=== PATIENT | female | born 1975 | race Caucasian/White ===

== ENCOUNTER 2018-07-08 17:23 | Emergency (ER) | payer SELFPAY ==
[2018-07-08 20:47] LABS: APPEARANCE,URINE CLOUDY; BILIRUBIN,URINE NEGATIVE (NEGATIVE); COLOR,URINE AMBER; GLUCOSE, URINE NEGATIVE (NEGATIVE); KETONES,URINE NEGATIVE (NEGATIVE); LEUKOCYTE ESTERASE,URINE TRACE (NEGATIVE); NITRITE,URINE NEGATIVE (NEGATIVE); PROTEIN,URINE 30 mg/dL (NEGATIVE); URINE SPECIFIC GRAVITY 1.027
[2018-07-08 21:20] LABS: ABSOLUTE EOSINOPHILS # (AUTO) 0.1 10^3/uL (0.0-0.6); ABSOLUTE LYMPHOCYTES (AUTO) 3.5 10^3/uL (0.5-4.7); ABSOLUTE MONOCYTES (AUTO) 0.5 10^3/uL (0.1-1.4); ABSOLUTE NEUT (AUTO) 4.5 10^3/uL (1.7-8.2); BASOPHILS % (AUTO) 0.4 % (0-2); EOSINOPHILS % (AUTO) 1.2 % (0-6); HEMATOCRIT 39.9 % (36.0-47.0); HEMOGLOBIN 13.5 g/dL (12.0-15.5); LYMPHOCYTES % (AUTO) 40.6 % (13-45); MEAN CORPUSCULAR HEMOGLOBIN 30.1 pg (27.0-33.4); MEAN CORPUSCULAR HGB CONC 33.9 g/dL (32.0-36.0); MEAN CORPUSCULAR VOLUME 89 fl (80-97); MONOCYTES % (AUTO) 5.8 % (3-13); PLATELET COUNT 213 10^3/uL (150-450); RED CELL DISTRIBUTION WIDTH 13.3 % (11.5-14.0); TOTAL CELLS COUNTED % (AUTO) 100 %; WHITE BLOOD COUNT 8.7 10^3/uL (4.0-10.5)
[2018-07-08 21:37] LABS: ANION GAP 10 (5-19); BLOOD UREA NITROGEN 18 mg/dL (7-20); CALCIUM 9.4 mg/dL (8.4-10.2); CARBON DIOXIDE 30 mmol/L (22-30); CHLORIDE 101 mmol/L (98-107); GLUCOSE 111 mg/dL (75-110); POTASSIUM 4.3 mmol/L (3.6-5.0); SODIUM 140.8 mmol/L (137-145)
[2018-07-08] MEDS ORDERED: CEPHALEXIN 500 MG CAPSULE PO ONE (22:21)
[2018-07-08] MEDS ORDERED: ONDANSETRON ODT 4 MG TAB (6 TAB/ER DISP) PO PRN (22:25)
--- NOTE | 2018-07-08 22:25 | ER Document Report ---
ED General - General Chief Complaint: Back Pain Stated Complaint: LOWER BACK PAIN Time Seen by Provider: 07/08/18 22:13 Notes: Patient is a pleasant 42-year-old female presents with complaint of bilateral lower back pain and also dark urine. She says she does not have any dysuria but does feel like she has some increased urinary frequency where she feels like she has to use the bathroom but only small amount of urine comes out. No fevers. No vomiting. No diarrhea. She does not member any trauma or injuries to her back. She says her pain is a bit worse when she gets up and walks around. No weakness or numbness into her legs. No loss of bowel control. No other complaints at this time. No abnormal vaginal discharge or bleeding. No pelvic pain. TRAVEL OUTSIDE OF THE [place] IN LAST 30 DAYS: No - Related Data Allergies/Adverse Reactions: morphine [Morphine] Allergy (Intermediate, Verified 03/07/13 19:33) Hives codeine [Codeine] Allergy (Mild, Verified 03/07/13 19:33) Hives Sulfa (Sulfonamide Antibiotics) Allergy (Verified 03/07/13 19:33) prednisone [Prednisone] Adverse Reaction (Intermediate, Verified 03/07/13 19:33) Past Medical History - Social History Smoking Status: Current Every Day Smoker Frequency of alcohol use: None Drug Abuse: None Family History: Reviewed & Not Pertinent Patient has suicidal ideation: No Patient has homicidal ideation: No Pulmonary Medical History: Reports: Hx Asthma, Hx Bronchitis, Hx Pneumonia Renal/ Medical History: Denies: Hx Peritoneal Dialysis Psychiatric Medical History: Reports: Hx Anxiety Past Surgical History: Reports: Hx Adenoidectomy, Hx Cholecystectomy, Hx Tonsillectomy - adenoids - Immunizations Hx Diphtheria, Pertussis, Tetanus Vaccination: Yes Review of Systems - Review of Systems Notes: My Normal Review Basic REVIEW OF SYSTEMS: CONSTITUTIONAL : Denies fever, chills, or sweats. Denies recent illness. GASTROINTESTINAL: Denies abdominal pain. Denies nausea, vomiting, or diarrhea. GENITOURINARY: urinary frequency FEMALE GENITOURINARY: Denies vaginal bleeding, abnormal or irregular periods. MUSCULOSKELETAL:Low back pain SKIN: Denies rash or skin lesions. NEUROLOGICAL: Denies altered mental status or loss of consciousness. ALL OTHER SYSTEMS REVIEWED AND NEGATIVE. Physical Exam - Vital signs Vitals: Temp Pulse Resp BP Pulse Ox 98.6 F 82 16 144/89 H 93 07/08/18 17:40 07/08/18 17:40 07/08/18 17:40 07/08/18 17:40 07/08/18 17:40 - Notes Notes: General Appearance: Well nourished, alert, cooperative, no acute distress, no obvious discomfort. Vitals: reviewed, See vital signs table. Eyes: PERRL, EOMI, Conjuctiva clear Mouth: No decreasd moisture Lungs: No wheezing, No rales, No rhonci, No accessory muscle use, good air exchange bilaterally. Heart: Normal rate, Regular rythm, No murmur, no rub Abdomen: Normal BS, soft, No rigidity, No abdominal tenderness, No guarding, no rebound, no abdominal masses, no organomegaly Back: No producible pain to palpation of the bilateral lower back paraspinal musculature. Skin: warm, dry, appropriate color, no rash Neuro: speech clear, oriented x 3, normal affect, responds appropriately to questions. Patient is able to stand and walk on her own. Distal sensation intact. Course - Re-evaluation Re-evalutation: 07/09/18 00:06 Patient's urinalysis does show some signs of infection. Her urinalysis is not overwhelmingly clear that it is infection however. She does have some symptoms such as dark urine or urinary frequency and therefore will send urine for culture and prophylactically start antibiotics. Her low back pain could be related to UTI however her back pain seems to be worse when she gets up and walks and therefore there could be a muscular skeletal component as well. I explained this to the patient length. Patient is understanding of this. We will start her on antibiotics will have her follow-up with her primary care physician. If she still having symptoms after being on antibiotic for 3-4 days and she is to follow-up with her doctor for reevaluation. I encouraged her return to ER immediately if she has worsening pain, difficulty urinating, fevers , or any weakness or numbness into her legs. Patient agrees with plan will be discharged home. Dictation of this chart was performed using voice recognition software; therefore, there may be some unintended grammatical errors. - Vital Signs Vital signs: Temp Pulse Resp BP Pulse Ox 99 F 69 16 129/83 H 97 07/08/18 23:45 07/08/18 23:45 07/08/18 23:45 07/08/18 23:45 07/08/18 23:45 - Laboratory Result Diagrams: 07/08/18 21:10 07/08/18 21:10 Laboratory results interpreted by me: 07/08/18 07/08/18 20:06 21:10 Glucose 111 H Urine Protein 30 H Urine Urobilinogen 4.0 H Ur Leukocyte Esterase TRACE H Discharge - Discharge Clinical Impression: Low back pain Qualifiers: Chronicity: acute Back pain laterality: bilateral Sciatica presence: without sciatica Qualified Code(s): M54.5 - Low back pain UTI (urinary tract infection) Qualifiers: Urinary tract infection type: site unspecified Hematuria presence: without hematuria Qualified Code(s): N39.0 - Urinary tract infection, site not specified Condition: Good Disposition: HOME, SELF-CARE Additional Instructions: I suspect you have a urinary tract infection based on your urine results and your symptoms. We will start you on an antibiotic and send your urine for culture. We will call you and change your antibiotic if your culture shows evidence of an infection resistant to the antibiotic you are on. There is always a possibility you could have a back strain or musculoskeletal etiology to your pain. We therefore want you to follow up closely with your primary care doctor n Saturday or Saturday for close reevaluation. Please return to the ER if you have worsening of your symptoms, fevers, weakness or numbness in your legs, or feel unwell. Prescriptions: Cephalexin Monohydrate [Keflex 500 mg Capsule] 500 mg PO BID #14 capsule
[2018-07-08 23:56] VITALS: BP 129/83
== END 2018-07-08 22:41 | disposition home or self-care (01) ==
LOC: ER 17:23
DX: N39.0 Urinary tract infection, site not specified (principal); M54.5 Low back pain; F17.200 Nicotine dependence, unspecified, uncomplicated; Z88.6 Allergy status to analgesic agent; Z88.2 Allergy status to sulfonamides; Z90.49 Acquired absence of other specified parts of digestive tract
CPT/HCPCS: 36415; 80048; 81001; 81025; 85025; 87086; 87088; 87186; 99283

== ENCOUNTER 2018-09-11 18:02 | Emergency (ER) | payer SELFPAY ==
[2018-09-11 18:17] VITALS: BP 153/90
--- NOTE | 2018-09-11 18:54 | ER Document Report ---
HPI - HPI Patient complains to provider of: Urinary frequency urgency pressure. Chronic back pain. Time Seen by Provider: 09/11/18 18:14 Onset: Other - Several days Onset/Duration: Intermittent Quality of pain: Pressure Severity: Moderate Pain Level: 4 Associated Symptoms: Other - Urinary frequency urgency pressure Exacerbated by: Other Relieved by: Denies - Urination Similar symptoms previously: Yes Recently seen / treated by doctor: Yes - ROS ROS below otherwise negative: Yes - CONSTITUTIONAL Constitutional: DENIES: Fever, Chills - EENT EENT: DENIES: Sore Throat, Ear Pain, Nasal Drainage-Clear, Nasal Drainage- Purulent, Congestion, Eye problems - NEURO Neurology: DENIES: Headache, Weakness, Vision blurred, Dizzinesss / Vertigo - CARDIOVASCULAR Cardiovascular: DENIES: Chest pain - RESPIRATORY Respiratory: DENIES: Trouble Breathing, Coughing - GASTROINTESTINAL Notes: Ventral hernia upper abdomen multiple old healed scars from cholecystectomy and repair of ventral hernia previously. Ventral hernia is easily reduced. - URINARY Urinary: REPORTS: Dysuria, Urgency, Frequency - REPRODUCTIVE Reproductive: DENIES: : - MUSCULOSKELETAL Musculoskeletal: REPORTS: Back Pain - Chronic back pain, chronic cystic structures or lipoma structures - DERM Skin Color: Normal Skin Problems: None Past Medical History - General Information source: Patient - Social History Smoking Status: Current Every Day Smoker Cigarette use (# per day): Yes - ppd Chew tobacco use (# tins/day): No Smoking Education Provided: Yes - 4 min Frequency of alcohol use: None Drug Abuse: None Occupation: none Lives with: Family Family History: Reviewed & Not Pertinent Patient has suicidal ideation: No Patient has homicidal ideation: No - Past Medical History Cardiac Medical History: Reports: None Pulmonary Medical History: Reports: Hx Asthma, Hx Bronchitis, Hx Pneumonia EENT Medical History: Reports: None Neurological Medical History: Reports: None Endocrine Medical History: Reports: None Renal/ Medical History: Reports: None Malignancy Medical History: Reports: None GI Medical History: Reports: Other - ventral hernia upper mid abdomen Musculoskeletal Medical History: Reports Other - 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 Other: Patient states she has been on methadone for the pain in the cystic, lipoma type knots to the upper and lower back that have been present for a number of years. She states that they stopped giving her the methadone and she got addicted to narcotics and so when she moved here they started her back on the methadone. She states she does not have insurance so she cannot go to a doctor regularly but goes to the methadone clinic where she sees a counselor and is on the methadone on a regular basis. States she was seeing a month ago for UTI but did not take the medications properly and now she has it again. Skin Medical History: Reports None Psychiatric Medical History: Reports: Hx Anxiety Traumatic Medical History: Reports: None Past Surgical History: Reports: Hx Adenoidectomy, Hx Cholecystectomy - with ventral hernia repair, Hx Tonsillectomy - adenoids - Immunizations Hx Diphtheria, Pertussis, Tetanus Vaccination: Yes Vertical Provider Document - CONSTITUTIONAL Agree With Documented VS: Yes Exam Limitations: No Limitations - INFECTION CONTROL TRAVEL OUTSIDE OF THE [place] IN LAST 30 DAYS: No - HEENT HEENT: Atraumatic, Normal ENT Exam, Normocephalic, PERRLA - NECK Neck: Normal Inspection, Supple - RESPIRATORY Respiratory: Breath Sounds Normal, No Respiratory Distress - CARDIOVASCULAR Cardiovascular: Regular Rate, Regular Rhythm - GI/ABDOMEN Notes: Ventral hernia upper mid abdomen easily reduced. Multiple scars from previous c holecystectomy obese abdomen. No tenderness to the lower abdomen or pelvic area states the ventral hernia is tender and painful when she strains to go to the bathroom. - MUSCULOSKELETAL/EXTREMETIES Musculoskeletal/Extremeties: MAEW, FROM, Tender - Multiple cystic/lipoma structures that are tender to palpation these are chronic - NEURO Level of Consciousness: Awake, Alert, Appropriate Motor/Sensory: No Motor Deficit, No Sensory Deficit Deep Tendon Reflexes: 2+ - DERM Integumentary: Warm, Dry, No Rash Course - Vital Signs Vital signs: Temp Pulse Resp BP Pulse Ox 99.0 F 74 18 153/90 H 98 09/11/18 18:16 09/11/18 18:16 09/11/18 18:16 09/11/18 18:16 09/11/18 18:16 Discharge - Discharge Clinical Impression: Dysuria Chronic pain Qualifiers: Chronic pain type: other chronic pain Qualified Code(s): G89.29 - Other chronic pain Condition: Stable Disposition: HOME, SELF-CARE Additional Instructions: Your urine was negative for any urinary tract infection at this time. I have sent the urine for culture to ensure that there is no bacterial infection. Please continue to take your current medications as prescribed. I have suggested Aspercreme lidocaine for your lumps to the back that are painful at times. I have also given you a card from the systems planner for you to call and see if there is any way you can get set up with a primary doctor since she had no insurance. Most of the primary doctor is given by the systems planner do not do chronic pain but they might help you with other concerns such as anxiety. I have suggested that you also talk with your counselor from the methadone clinic. He may be able to give me suggestions and helpful hints. FOLLOW-UP CARE: If you have been referred to a physician for follow-up care, call the physicians office for an appointment as you were instructed or within the next two days. If you experience worsening or a significant change in your symptoms, notify the physician immediately or return to the Emergency Department at any time for re-evaluation. Forms: Elevated Blood Pressure, Smoking Cessation Education Referrals: [facility] [Provider Group] - Follow up as needed [facility] [Provider Group] - Follow up as needed [facility] [Provider Group] - Follow up as needed
[2018-09-11 18:59] LABS: APPEARANCE,URINE CLEAR; BILIRUBIN,URINE NEGATIVE (NEGATIVE); COLOR,URINE YELLOW; GLUCOSE, URINE NEGATIVE (NEGATIVE); KETONES,URINE NEGATIVE (NEGATIVE); LEUKOCYTE ESTERASE,URINE TRACE (NEGATIVE); NITRITE,URINE NEGATIVE (NEGATIVE); PROTEIN,URINE NEGATIVE (NEGATIVE); URINE SPECIFIC GRAVITY 1.015
== END 2018-09-11 19:21 | disposition home or self-care (01) ==
LOC: ER 18:02
DX: R30.0 Dysuria (principal); G89.29 Other chronic pain; M54.5 Low back pain; M54.89 Other dorsalgia; Z79.891 Long term (current) use of opiate analgesic; R35.0 Frequency of micturition; R39.15 Urgency of urination; R22.2 Localized swelling, mass and lump, trunk; K43.9 Ventral hernia without obstruction or gangrene; J45.909 Unspecified asthma, uncomplicated; F17.210 Nicotine dependence, cigarettes, uncomplicated; Z71.6 Tobacco abuse counseling
CPT/HCPCS: 81001; 81025; 87086; 99283; 99406

== ENCOUNTER 2018-11-10 11:10 | Emergency (ER) | payer SELFPAY ==
--- NOTE | 2018-11-10 13:05 | ER Document Report ---
ED ENT - General Chief Complaint: Allergy Symptoms Stated Complaint: SORE THROAT,SINUS CONGESTION Time Seen by Provider: 11/10/18 12:07 Mode of Arrival: Ambulatory Information source: Patient Notes: 42-year-old female presents to ED for cough cold congestion sore throat with out any fevers for the last several days. She wanted to be checked to be sure she did not have a strep throat. She is alert oriented respirations regular and unlabored speaking in full sentences walks with a anabela gait. TRAVEL OUTSIDE OF THE [place] IN LAST 30 DAYS: No - HPI Patient complains to provider of: Nose problem, Throat problem Onset: Other - Cinthya days Onset/Duration: Persistent Quality of pain: Achy Severity: Mild Pain Level: 2 Location of pain: Nose, Sinus, Throat Associated symptoms: Congestion, Cough, Runny nose, Sinus pain, Sinus drainage, Sore throat. denies: Fever Similar symptoms previously: Yes Recently seen / treated by doctor: No - Related Data Allergies/Adverse Reactions: morphine [Morphine] Allergy (Intermediate, Verified 03/07/13 19:33) Hives codeine [Codeine] Allergy (Mild, Verified 03/07/13 19:33) Hives Sulfa (Sulfonamide Antibiotics) Allergy (Verified 03/07/13 19:33) prednisone [Prednisone] Adverse Reaction (Intermediate, Verified 03/07/13 19:33) Past Medical History - General Information source: Patient - Social History Smoking Status: Current Every Day Smoker Cigarette use (# per day): Yes - 1/3 pack/day Chew tobacco use (# tins/day): No Smoking Education Provided: Yes - 4 minutes Frequency of alcohol use: None Drug Abuse: None Lives with: Family Family History: Reviewed & Not Pertinent Patient has suicidal ideation: No Patient has homicidal ideation: No - Past Medical History Cardiac Medical History: Reports: None Pulmonary Medical History: Reports: Hx Asthma, Hx Bronchitis, Hx Pneumonia EENT Medical History: Reports: None Neurological Medical History: Reports: None Endocrine Medical History: Reports: None Renal/ Medical History: Reports: None Malignancy Medical History: Reports: None GI Medical History: Reports: None Musculoskeletal Medical History: Reports None Skin Medical History: Reports None Psychiatric Medical History: Reports: Hx Anxiety Traumatic Medical History: Reports: None Infectious Medical History: Reports: None Past Surgical History: Reports: Hx Adenoidectomy, Hx Cholecystectomy - with ventral hernia repair, Hx Tonsillectomy - adenoids - Immunizations Immunizations up to date: Yes Hx Diphtheria, Pertussis, Tetanus Vaccination: Yes Review of Systems - Review of Systems Constitutional: No symptoms reported EENT: No symptoms reported Cardiovascular: No symptoms reported Respiratory: No symptoms reported Gastrointestinal: No symptoms reported Genitourinary: No symptoms reported Female Genitourinary: No symptoms reported Musculoskeletal: No symptoms reported Skin: No symptoms reported Hematologic/Lymphatic: No symptoms reported Neurological/Psychological: No symptoms reported -: Yes All other systems reviewed and negative Physical Exam - Vital signs Vitals: Temp Pulse Resp BP Pulse Ox 98.0 F 75 16 135/79 H 94 11/10/18 11:38 11/10/18 11:38 11/10/18 11:38 11/10/18 11:38 11/10/18 11:38 Interpretation: Normal - General General appearance: Appears well, Alert - HEENT Head: Normocephalic, Atraumatic Eyes: Normal Pupils: PERRL Ears: Normal External canal: Normal Tympanic membrane: Normal Sinus: Normal Nasal: Purulent discharge, Swelling Mouth/Lips: Normal Mucous membranes: Normal Pharynx: Erythema, Post nasal drainage. No: Exudate, Tonsillar hypertrophy Neck: Normal - Respiratory Respiratory status: No respiratory distress Chest status: Nontender Breath sounds: Nonproductive cough. No: Productive cough, Rales, Rhonchi, Stridor, Wheezing Chest palpation: Normal - Cardiovascular Rhythm: Regular Heart sounds: Normal auscultation Murmur: No - Abdominal Inspection: Normal Distension: No distension Bowel sounds: Normal Tenderness: Nontender Organomegaly: No organomegaly - Back Back: Normal, Nontender - Extremities General upper extremity: Normal inspection, Nontender, Normal color, Normal ROM, Normal temperature General lower extremity: Normal inspection, Nontender, Normal color, Normal ROM, Normal temperature, Normal weight bearing. No: Alethea's sign - Neurological Neuro grossly intact: Yes Cognition: Normal Orientation: AAOx4 [place] Coma Scale Eye Opening: Spontaneous [place] Coma Scale Verbal: Oriented [place] Coma Scale Motor: Obeys Commands [place] Coma Scale Total: 15 Speech: Normal Motor strength normal: LUE, RUE, LLE, RLE Sensory: Normal - Psychological Associated symptoms: Normal affect, Normal mood - Skin Skin Temperature: Warm Skin Moisture: Dry Skin Color: Normal Course - Re-evaluation Re-evalutation: 11/10/18 16:58 After performing a Medical Screening Examination, I estimate there is LOW risk for ACUTE CORONARY SYNDROME, RESPIRATORY FAILURE, SEPSIS OR MENINGITIS, thus I consider the discharge disposition reasonable. I have reevaluated this patient multiple times and no significant life threatening changes are noted. The patient and I have discussed the diagnosis and risks, and we agree with discharging home with close follow-up. We also discussed returning to the Em ergency Department immediately if new or worsening symptoms occur. We have discussed the symptoms which are most concerning (e.g., changing or worsening pain, trouble swallowing or breathing, neck stiffness, fever) that necessitate immediate return. - Vital Signs Vital signs: Temp Pulse Resp BP Pulse Ox 98.6 F 71 16 126/71 H 94 11/10/18 13:37 11/10/18 13:37 11/10/18 13:37 11/10/18 13:37 11/10/18 13:37 Discharge - Discharge Clinical Impression: Viral sore throat URI (upper respiratory infection) Qualifiers: URI type: unspecified viral URI Qualified Code(s): J06.9 - Acute upper respir atory infection, unspecified Condition: Stable Disposition: HOME, SELF-CARE Instructions: Family Physicians / Practices Additional Instructions: SORE THROAT: Sore throats may be caused by viruses, bacteria, or fungi. Most are due to a virus, and must get better on their own. Bacterial sore throats, particularly those due to "strep," need treatment with antibiotics. If an antibiotic is prescribed, be sure to take the medication for a full 10 days. Failure to take the antibiotic can result in complications such as rheumatic fever. Sometimes, an injection of antibiotics is given instead of pills or liquid. This single "shot" is equal in effectiveness to the oral medication. To relieve symptoms, take acetaminophen for pain. Sip clear liquids frequently, or eat popsicles or ice chips. Anesthetic sprays or lozenges may help. Make sure the air in the room is not too dry. Avoid using decongestants or antihistamines. Call the doctor if there is no improvement in two days, or if you have difficulty breathing, increasing throat pain, high fever, rash, or frequent vomiting. UPPER RESPIRATORY ILLNESS: You have a viral infection of the respiratory passages -- a "cold." This common infection causes nasal congestion, drainage, and often sore throat and cough. It is highly contagious. The disease usually lasts about 10 to 14 days. There is no "cure" for the viral infection -- it must run its course. If there is a complication, such as bacterial infection in the nose, sinuses, middle ear, or bronchial tubes, antibiotics may be required. The antibiotics won't affect the virus. Drink plenty of fluids. A humidifier may help. An expectorant medication or decongestant may make you more comfortable. Use acetaminophen or ibuprofen for fever or aches. See the doctor if fever persists over two days, if there is any significant worsening of your symptoms, or if you simply fail to improve as expected. Try Claritin 10 mg, Sudafed 30 mg, Mucinex 600 mg, Flonase 2 sprays each nostril, and Chloraseptic spray for your cough cold congestion and sore throat. There is no strep throat and you do not need antibiotics at this time. Please follow-up with your primary doctor. USE OF ACETAMINOPHEN (Tylenol): Acetaminophen may be taken for pain relief or fever control. It's much safer than aspirin, offering a wider range of "safe" dosages. It is safe during . Some brand names are Tylenol, Panadol, Datril, Anacin 3, Tempra, and Liquiprin. Acetaminophen can be repeated every four hours. The following are maximum recommended dosages: >89 pounds or adults 650 mg to 900 mg Acetaminophen can be repeated every four hours. Maximum dose not to exceed 4000 mg a day. SMOKING: If you smoke, you should stop smoking. The tar and chemicals in cigarette smoke are harmful. Smoking has been shown to cause: emphysema chronic bronchitis lung cancer mouth and throat cancer stomach and pancreas cancer premature aging defects In addition, smoking increases ear and lung infections in children of smokers. FOLLOW-UP CARE: If you have been referred to a physician for follow-up care, call the physicians office for an appointment as you were instructed or within the next two days. If you experience worsening or a significant change in your symptoms, notify the physician immediately or return to the Emergency Department at any time for re-evaluation. Forms: Elevated Blood Pressure, Smoking Cessation Education, Return to Work
[2018-11-10 13:39] VITALS: BP 126/71
== END 2018-11-10 13:50 | disposition home or self-care (01) ==
LOC: ER 11:10
DX: J06.9 Acute upper respiratory infection, unspecified (principal); J02.9 Acute pharyngitis, unspecified; B34.9 Viral infection, unspecified; F17.210 Nicotine dependence, cigarettes, uncomplicated; Z88.6 Allergy status to analgesic agent; Z88.2 Allergy status to sulfonamides; Z90.49 Acquired absence of other specified parts of digestive tract
CPT/HCPCS: 87070; 87880; 99283; 99406

== ENCOUNTER 2019-01-13 20:19 | Emergency (ER) | payer SELFPAY ==
[2019-01-13] MEDS ORDERED: ONDANSETRON 4 MG TAB.RAPDIS PO ONE (21:42)
[2019-01-13] MEDS ORDERED: IBUPROFEN 600 MG TABLET PO ONE (21:42)
--- NOTE | 2019-01-13 21:43 | ER Document Report ---
ED Medical Screen (RME) - General Chief Complaint: Abdominal Pain Stated Complaint: ABDOMINAL PAIN Time Seen by Provider: 01/13/19 21:42 Notes: 43-year-old female, chief complaint of mid abdominal pain sharp, pain started today. Denies vomiting, has not had a bowel movement today, denies fever/chills. Denies vaginal bleeding or discharge, flank pain, dysuria. Past medical history of ventral hernia repair and takes methadone. TRAVEL OUTSIDE OF THE [place] IN LAST 30 DAYS: No - Related Data Allergies/Adverse Reactions: morphine [Morphine] Allergy (Intermediate, Verified 03/07/13 19:33) Hives codeine [Codeine] Allergy (Mild, Verified 03/07/13 19:33) Hives Sulfa (Sulfonamide Antibiotics) Allergy (Verified 03/07/13 19:33) prednisone [Prednisone] Adverse Reaction (Intermediate, Verified 03/07/13 19:33) Past Medical History Pulmonary Medical History: Reports: Hx Asthma, Hx Bronchitis, Hx Pneumonia Renal/ Medical History: Denies: Hx Peritoneal Dialysis Psychiatric Medical History: Reports: Hx Anxiety Past Surgical History: Reports: Hx Adenoidectomy, Hx Cholecystectomy - with ventral hernia repair, Hx Tonsillectomy - adenoids - Immunizations Immunizations up to date: Yes Hx Diphtheria, Pertussis, Tetanus Vaccination: Yes Physical Exam - Vital signs Vitals: Temp Pulse Resp BP Pulse Ox 98.3 F 75 16 125/83 94 01/13/19 21:07 01/13/19 21:07 01/13/19 21:07 01/13/19 21:07 01/13/19 21:07 - Abdominal Tenderness: Tender - Ventral hernia appears to have returned but is not incarcerated on my evaluation. Pain appears to be below this in the mid abdomen. No severe guarding or distention, no rigidity. Course - Re-evaluation Re-evalutation: I have greeted and performed a rapid initial assessment of this patient. A comprehensive ED assessment and evaluation of the patient, analysis of test results and completion of the medical decision making process will be conducted by additional ED providers. - Vital Signs Vital signs: Temp Pulse Resp BP Pulse Ox 98.3 F 75 16 125/83 94 01/13/19 21:07 01/13/19 21:07 01/13/19 21:07 01/13/19 21:07 01/13/19 21:07
[2019-01-13 23:07] LABS: ABSOLUTE BASOPHILS # (AUTO) 0.2 10^3/uL (0.0-0.2); ABSOLUTE EOSINOPHILS # (AUTO) 0.1 10^3/uL (0.0-0.6); ABSOLUTE LYMPHOCYTES (AUTO) 3.8 10^3/uL (0.5-4.7); ABSOLUTE MONOCYTES (AUTO) 0.4 10^3/uL (0.1-1.4); ABSOLUTE NEUT (AUTO) 5.6 10^3/uL (1.7-8.2); BASOPHILS % (AUTO) 2.1 % (0-2); EOSINOPHILS % (AUTO) 1.2 % (0-6); HEMOGLOBIN 13.9 g/dL (12.0-15.5); LYMPHOCYTES % (AUTO) 37.8 % (13-45); MEAN CORPUSCULAR HEMOGLOBIN 30.3 pg (27.0-33.4); MEAN CORPUSCULAR HGB CONC 33.9 g/dL (32.0-36.0); MEAN CORPUSCULAR VOLUME 89 fl (80-97); MONOCYTES % (AUTO) 3.8 % (3-13); PLATELET COUNT 218 10^3/uL (150-450); RED BLOOD COUNT 4.59 10^6/uL (3.72-5.28); RED CELL DISTRIBUTION WIDTH 13.6 % (11.5-14.0); SEGMENTED NEUTROPHILS % (AUTO) 55.1 % (42-78); TOTAL CELLS COUNTED % (AUTO) 100 %; WHITE BLOOD COUNT 10.1 10^3/uL (4.0-10.5)
[2019-01-13 23:19] LABS: AMORPHOUS SEDIMENT,URINE TRACE /HPF; APPEARANCE,URINE SLIGHTLY-CLOUDY; BILIRUBIN,URINE NEGATIVE (NEGATIVE); COLOR,URINE YELLOW; GLUCOSE, URINE NEGATIVE (NEGATIVE); KETONES,URINE NEGATIVE (NEGATIVE); LEUKOCYTE ESTERASE,URINE TRACE (NEGATIVE); NITRITE,URINE NEGATIVE (NEGATIVE); PROTEIN,URINE NEGATIVE (NEGATIVE); URINE SPECIFIC GRAVITY 1.017
[2019-01-13 23:22] LABS: ALANINE AMINOTRANSFERASE 32 U/L (9-52); ALBUMIN 4.4 g/dL (3.5-5.0); ALKALINE PHOSPHATASE 94 U/L (38-126); ANION GAP 11 (5-19); ASPARTATE AMINO TRANSFERASE 25 U/L (14-36); BILIRUBIN,DIRECT 0.3 mg/dL (0.0-0.4); BILIRUBIN,TOTAL 0.4 mg/dL (0.2-1.3); BLOOD UREA NITROGEN 14 mg/dL (7-20); CALCIUM 9.8 mg/dL (8.4-10.2); CARBON DIOXIDE 29 mmol/L (22-30); CHLORIDE 101 mmol/L (98-107); GLUCOSE 143 mg/dL (75-110); LIPASE 80.3 U/L (23-300); POTASSIUM 4.3 mmol/L (3.6-5.0); SODIUM 140.9 mmol/L (137-145); TOTAL PROTEIN 7.7 g/dL (6.3-8.2)
--- NOTE | 2019-01-13 23:34 | RADIOLOGY REPORT (SQ) ---
EXAM DESCRIPTION: XR ABDOMEN SUPINE AND ERECT WITH CHEST (ABD ACUTE SERIES) COMPLETED DATE/TME: 01/13/2019 21:42 CLINICAL HISTORY: 43 years, Female, mid abd pain, hx abd surgery COMPARISON: None. NUMBER OF VIEWS: Three TECHNIQUE: Three frontal radiographs of the chest and abdomen were obtained LIMITATIONS: None. FINDINGS: Cardiac and mediastinal contours are normal. Blunting of the right costophrenic sulcus is evident. Lungs are otherwise clear. No pneumothorax. No subdiaphragmatic free air is appreciated. Gas and a moderate amount of stool are noted throughout the large bowel. Scattered nondilated loops of small bowel are also visible throughout the abdomen. Surgical clips project over the right upper quadrant. There is mild rightward curvature of the thoracolumbar spine. IMPRESSION: Blunting of the right costophrenic sulcus which could indicate pleural thickening or a small right pleural effusion. Otherwise, no other acute findings within the chest. Nonobstructive bowel gas pattern. Moderate colonic stool load. copyright 2010 [employer]- All Rights Reserved
[2019-01-14] MEDS ORDERED: MAGNESIUM CITRATE 296 ML BOTTLE PO ONE (00:50)
--- NOTE | 2019-01-14 00:52 | ER Document Report ---
ED GI/ - General Chief Complaint: Abdominal Pain Stated Complaint: ABDOMINAL PAIN Time Seen by Provider: 01/13/19 21:42 Primary Care Provider: [facility] [Provider Group] - Follow up as needed Notes: Patient is a 43-year-old female, chief complaint of mid abdominal pain sharp, pain started today. Denies vomiting, has not had a bowel movement today, denies fever/chills. Denies vaginal bleeding or discharge, flank pain, dysuria. Past medical history of ventral hernia repair, cholecystectomy, and takes methadone. She smokes. TRAVEL OUTSIDE OF THE [place] IN LAST 30 DAYS: No - Related Data Allergies/Adverse Reactions: morphine [Morphine] Allergy (Intermediate, Verified 03/07/13 19:33) Hives codeine [Codeine] Allergy (Mild, Verified 03/07/13 19:33) Hives Sulfa (Sulfonamide Antibiotics) Allergy (Verified 03/07/13 19:33) prednisone [Prednisone] Adverse Reaction (Intermediate, Verified 03/07/13 19:33) Past Medical History - General Information source: Patient - Social History Smoking Status: Current Every Day Smoker Smoking Education Provided: Yes - <3 min Frequency of alcohol use: None Drug Abuse: None Lives with: Family Family History: Reviewed & Not Pertinent Pulmonary Medical History: Reports: Hx Asthma, Hx Bronchitis, Hx Pneumonia Renal/ Medical History: Denies: Hx Peritoneal Dialysis Psychiatric Medical History: Reports: Hx Anxiety Past Surgical History: Reports: Hx Adenoidectomy, Hx Cholecystectomy - with ventral hernia repair, Hx Tonsillectomy - adenoids - Immunizations Immunizations up to date: Yes Hx Diphtheria, Pertussis, Tetanus Vaccination: Yes Review of Systems - Review of Systems Constitutional: No symptoms reported EENT: No symptoms reported Cardiovascular: No symptoms reported Respiratory: No symptoms reported Gastrointestinal: See HPI Genitourinary: No symptoms reported Female Genitourinary: No symptoms reported Musculoskeletal: No symptoms reported Skin: No symptoms reported Hematologic/Lymphatic: No symptoms reported Neurological/Psychological: No symptoms reported Physical Exam - Vital signs Vitals: Temp Pulse Resp BP Pulse Ox 98.3 F 75 16 125/83 94 01/13/19 21:07 01/13/19 21:07 01/13/19 21:07 01/13/19 21:07 01/13/19 21:07 - Notes Notes: GENERAL: Alert, interacts well. No acute distress. HEAD: Normocephalic, atraumatic. EYES: Pupils equal, round, and reactive to light. Extraocular movements intact. ENT: Oral mucosa moist, tongue midline. Oropharynx unremarkable. Airway patent. NECK: Full range of motion. Supple. Trachea midline. LUNGS: Clear to auscultation bilaterally, no wheezes, rales, or rhonchi. No respiratory distress. HEART: Regular rate and rhythm. No murmur ABDOMEN: Questionable minimal distention. No rigidity. There is a small ventral hernia which is reduced easily, there is no erythema or hardness, the re maining abdomen is benign without noted tenderness. No guarding. GENITOURINARY: Deferred EXTREMITIES: Moves all 4 extremities spontaneously. No edema, normal radial and dorsalis pedis pulses bilaterally. No cyanosis. BACK: no cervical, thoracic, lumbar midline tenderness. No saddle anesthesia, normal distal neurovascular exam. Moves all extremities in full range of motion. NEUROLOGICAL: Alert and oriented x3. Normal speech. Cranial nerves II through XII grossly intact. PSYCH: Normal affect, normal mood. SKIN: Warm, dry, normal turgor. No rashes or lesions noted. Course - Re-evaluation Re-evalutation: Patient is quite well-appearing. In triage she asked for Zofran and ibuprofen, she did look mildly uncomfortable initially but on re-evaluation she is very well-appearing. She does have a palpable ventral hernia but this is not incarcerated, reduces easily, is not noted to be tender, and her remaining abdomen is very benign. She reports she feels distended, she does seem slightly distended but not rigid. CBC, chemistry, urinalysis unremarkable. test is negative. Acute abdominal series showing possible pleural thickening versus tiny pleural effusion, however patient has no respiratory complaints, no chest pain, no hypoxia, no shortness of breath. No bowel obstruction or free air is noted but there is a moderate amount of stool. Patient does not take a stool softener, is on methadone, reports poor bowel movements recently. There appears to be a constipation component. I discussed with patient her hernia, need for follow-up and repair, smoking cessation, and her work-up. I do not suspect an acute abdomen based on her benign abdominal evaluation. Patient will be treated for retained stool, follow-up with surgery, return if she worsens. Patient states satisfaction agreement. Stable at time of discharge. - Vital Signs Vital signs: Temp Pulse Resp BP Pulse Ox 98.4 F 78 20 133/79 H 98 01/14/19 01:20 01/14/19 01:20 01/14/19 01:20 01/14/19 01:20 01/14/19 01:20 - Laboratory Result Diagrams: 01/13/19 22:44 01/13/19 22:44 Laboratory results interpreted by me: 01/13/19 01/13/19 01/13/19 22:44 22:44 22:44 Basophils % 2.1 H Glucose 143 H Urine Urobilinogen 4.0 H Ur Leukocyte Esterase TRACE H Discharge - Discharge Clinical Impression: Abdominal pain Qualifiers: Abdominal location: generalized Qualified Code(s): R10.84 - Generalized abdominal pain Condition: Stable Disposition: HOME, SELF-CARE Additional Instructions: Your laboratory work-up does not show any concerning a normality, your x-ray does not show bowel obstruction or concerning finding at this time. You do have a large amount of stool in the colon that we will try to clear, he will also have a ventral hernia which likely needs repair, please follow-up with the surgical clinic referral. I recommend that you drink 1/4 to 1/2 of the magnesium citrate, then if after several hours you do not have bowel movement results drink another 1/4 to half. You may need to take the colace stool softener for the next several days as well as prescribed. Take bentyl for cramping, zofran for nausea. Improve your diet - increased vegetables, fruits, fiber, and fluids are very helpful to clear your bowels. Return if you worsen including vomiting, severe worsening abdominal pain, fever/chills, or any other concerning symptoms. Prescriptions: Dicyclomine HCl [Bentyl 20 mg Tablet] 20 mg PO QID PRN #20 tablet PRN Reason: Docusate Sodium [Colace 100 mg Capsule] 100 mg PO ASDIR PRN #30 capsule PRN Reason: Forms: Smoking Cessation Education Referrals: [facility] [Provider Group] - Follow up as needed
[2019-01-14] MEDS ORDERED: KETOROLAC TROMETHAMINE 60 MG/2 ML SDV IM ONE (01:16)
[2019-01-14 01:54] VITALS: BP 133/79
== END 2019-01-14 01:13 | disposition home or self-care (01) ==
LOC: ER 20:19
DX: R10.84 Generalized abdominal pain (principal); K43.9 Ventral hernia without obstruction or gangrene; F17.200 Nicotine dependence, unspecified, uncomplicated; Z90.49 Acquired absence of other specified parts of digestive tract; Z88.6 Allergy status to analgesic agent; Z88.2 Allergy status to sulfonamides
CPT/HCPCS: 99284; 96372; 36415; 83690; 85025; 81025; 80053; 81001; 74022; J3490; J1885; S0119

== ENCOUNTER 2019-03-20 19:20 | Emergency (ER) | payer SELFPAY ==
--- NOTE | 2019-03-20 20:45 | ER Document Report ---
ED Medical Screen (RME) - General Chief Complaint: High Blood Pressure Stated Complaint: HEADACHE,HIGH BLOOD PRESSURE Time Seen by Provider: 03/20/19 20:39 Mode of Arrival: Ambulatory Information source: Patient Notes: 43-year-old female presented to ED for complaint of headache earlier today. She states she had not eaten at the time and she checked her blood pressure was 150/101. She was extremely anxious. She did eat a banana and some crackers and her headache got better and her blood pressure came down. She states she is been having hot flashes on and off. She states she has not had a menstrual cycle in almost a year. Her mother states she was probably going through menopause and she said she felt this might be why she was having a headache and hot flashes. She has had a history of high blood pressure and anxiety. She has had her gallbladder removed and a ventral hernia repair tonsils and adenoids removed. She is also says she smokes a pack a day does not drink or do any drugs. She is alert oriented respirations regular and unlabored speaking in full sentences. She states her headache is much better now. She states the reason she came to the emergency room is her friend is scaring her to so she came to get checked out. I have greeted and performed a rapid initial assessment of this patient. A comprehensive ED assessment and evaluation of the patient, analysis of test results and completion of medical decision making process will be conducted by an additional ED providers. Dictation of this chart was performed using voice recognition software; therefore, there may be some unintended grammatical errors. TRAVEL OUTSIDE OF THE [place] IN LAST 30 DAYS: No - Related Data Allergies/Adverse Reactions: morphine [Morphine] Allergy (Intermediate, Verified 03/20/19 20:31) Hives codeine [Codeine] Allergy (Mild, Verified 03/20/19 20:31) Hives Sulfa (Sulfonamide Antibiotics) Allergy (Verified 03/20/19 20:31) prednisone [Prednisone] Adverse Reaction (Intermediate, Verified 03/20/19 20:31) Past Medical History - Social History Frequency of alcohol use: None Drug Abuse: None Pulmonary Medical History: Reports: Hx Asthma, Hx Bronchitis, Hx Pneumonia Renal/ Medical History: Denies: Hx Peritoneal Dialysis Psychiatric Medical History: Reports: Hx Anxiety Past Surgical History: Reports: Hx Adenoidectomy, Hx Cholecystectomy - with ventral hernia repair, Hx Tonsillectomy - adenoids - Immunizations Immunizations up to date: Yes Hx Diphtheria, Pertussis, Tetanus Vaccination: Yes Physical Exam - Vital signs Vitals: Temp Pulse Resp BP Pulse Ox 98.1 F 70 18 144/91 H 96 03/20/19 19:27 03/20/19 19:27 03/20/19 19:27 03/20/19 19:27 03/20/19 19:27 Course - Vital Signs Vital signs: Temp Pulse Resp BP Pulse Ox 98.1 F 70 18 144/91 H 96 03/20/19 19:27 03/20/19 19:27 03/20/19 19:27 03/20/19 19:27 03/20/19 19:27
[2019-03-20 21:36] LABS: ABSOLUTE EOSINOPHILS # (AUTO) 0.2 10^3/uL (0.0-0.6); ABSOLUTE LYMPHOCYTES (AUTO) 4.6 10^3/uL (0.5-4.7); ABSOLUTE MONOCYTES (AUTO) 0.6 10^3/uL (0.1-1.4); ABSOLUTE NEUT (AUTO) 4.8 10^3/uL (1.7-8.2); BASOPHILS % (AUTO) 0.4 % (0-2); EOSINOPHILS % (AUTO) 1.5 % (0-6); HEMATOCRIT 41.4 % (36.0-47.0); HEMOGLOBIN 14.1 g/dL (12.0-15.5); LYMPHOCYTES % (AUTO) 45.2 % (13-45); MEAN CORPUSCULAR HEMOGLOBIN 30.4 pg (27.0-33.4); MEAN CORPUSCULAR VOLUME 90 fl (80-97); MONOCYTES % (AUTO) 5.8 % (3-13); PLATELET COUNT 221 10^3/uL (150-450); RED BLOOD COUNT 4.62 10^6/uL (3.72-5.28); RED CELL DISTRIBUTION WIDTH 13.2 % (11.5-14.0); SEGMENTED NEUTROPHILS % (AUTO) 47.1 % (42-78); TOTAL CELLS COUNTED % (AUTO) 100 %; WHITE BLOOD COUNT 10.2 10^3/uL (4.0-10.5)
[2019-03-20 21:48] LABS: APPEARANCE,URINE CLEAR; BILIRUBIN,URINE NEGATIVE (NEGATIVE); COLOR,URINE YELLOW; GLUCOSE, URINE NEGATIVE (NEGATIVE); KETONES,URINE NEGATIVE (NEGATIVE); LEUKOCYTE ESTERASE,URINE TRACE (NEGATIVE); NITRITE,URINE NEGATIVE (NEGATIVE); PROTEIN,URINE NEGATIVE (NEGATIVE); URINE SPECIFIC GRAVITY 1.024
[2019-03-20 21:58] LABS: ALBUMIN 4.3 g/dL (3.5-5.0); ALKALINE PHOSPHATASE 95 U/L (38-126); ANION GAP 12 (5-19); ASPARTATE AMINO TRANSFERASE 29 U/L (14-36); BILIRUBIN,DIRECT 0.4 mg/dL (0.0-0.4); BILIRUBIN,TOTAL 0.5 mg/dL (0.2-1.3); BLOOD UREA NITROGEN 12 mg/dL (7-20); CALCIUM 9.6 mg/dL (8.4-10.2); CARBON DIOXIDE 27 mmol/L (22-30); CHLORIDE 100 mmol/L (98-107); GLUCOSE 107 mg/dL (75-110); POTASSIUM 4.3 mmol/L (3.6-5.0); TOTAL PROTEIN 7.3 g/dL (6.3-8.2)
--- NOTE | 2019-03-21 00:25 | ER Document Report ---
ED General - General Chief Complaint: High Blood Pressure Stated Complaint: HEADACHE,HIGH BLOOD PRESSURE Time Seen by Provider: 03/20/19 20:39 Primary Care Provider: [facility] [Provider Group] - Follow up in 3-5 days Mode of Arrival: Ambulatory Notes: 43-year-old female to the emergency department chief complaint of headache and high blood pressure. Patient states that she took her blood pressure with a automated wrist blood pressure that her friend gave her because she was feeling a little dizzy. Her blood pressure was reportedly 170/100. Her friend convinced her to come to the ER. She states that her friend makes her anxious and nervous because she is always telling her there is something wrong. States that her friend has some sort of medical training. States that she may be going through menopause. Has not had a menstrual cycle in over a year. Smoke. Does have extra weight that she needs to lose. TRAVEL OUTSIDE OF THE [place] IN LAST 30 DAYS: No - HPI Onset/Duration: Gradual Quality of pain: No pain - Related Data Allergies/Adverse Reactions: morphine [Morphine] Allergy (Intermediate, Verified 03/20/19 20:31) Hives codeine [Codeine] Allergy (Mild, Verified 03/20/19 20:31) Hives Sulfa (Sulfonamide Antibiotics) Allergy (Verified 03/20/19 20:31) prednisone [Prednisone] Adverse Reaction (Intermediate, Verified 03/20/19 20:31) Past Medical History - General Information source: Patient - Social History Smoking Status: Current Every Day Smoker Cigarette use (# per day): Yes Frequency of alcohol use: None Drug Abuse: None Lives with: Family Family History: Reviewed & Not Pertinent Patient has suicidal ideation: No Patient has homicidal ideation: No - Past Medical History Cardiac Medical History: Reports: None Pulmonary Medical History: Reports: Hx Asthma, Hx Bronchitis, Hx Pneumonia Renal/ Medical History: Denies: Hx Peritoneal Dialysis Psychiatric Medical History: Reports: Hx Anxiety Past Surgical History: Reports: Hx Adenoidectomy, Hx Cholecystectomy - with ventral hernia repair, Hx Tonsillectomy - adenoids - Immunizations Immunizations up to date: Yes Hx Diphtheria, Pertussis, Tetanus Vaccination: Yes Review of Systems - Review of Systems Notes: Constitutional: denies: Chills, Diaphoresis, Fever, Malaise, Weakness EENT: denies: Eye discharge, Blurred vision, Tearing, Double vision, Nose congestion, Nose discharge, Throat swelling, Mouth pain Cardiovascular: denies: Palpitations, Heart racing, Orthopnea, Dyspnea, Chest pain Respiratory: denies: Cough, Hurts to breathe, Wheezing, Shortness of breath Gastrointestinal: denies: Abdominal pain, Diarrhea, Nausea, Vomiting, Black stools, bright red blood in stool Genitourinary: denies: Burning, Dysuria, Discharge, Frequency, Flank pain, Hematuria Musculoskeletal: denies: Joint pain, Joint swelling, Muscle pain, Muscle stiffness, back pain Hematologic/Lymphatic: denies: Anemia, Easy bleeding, Easy bruising, Blood clots Neurological/Psychological: denies: Confusion, Dementia, Depression, Loss of consciousness, + headache Skin: No lesions, no masses, no skin breakdown, no abscesses Physical Exam - Vital signs Vitals: Temp Pulse Resp BP Pulse Ox 98.1 F 70 18 144/91 H 96 03/20/19 19:27 03/20/19 19:27 03/20/19 19:27 03/20/19 19:27 03/20/19 19:27 Interpretation: Normal - General General appearance: Appears well, Alert - HEENT Head: Normocephalic, Atraumatic Eyes: Normal Pupils: PERRL - Respiratory Respiratory status: No respiratory distress Chest status: Nontender Breath sounds: Normal Chest palpation: Normal - Cardiovascular Rhythm: Regular Heart sounds: Normal auscultation Murmur: No - Abdominal Inspection: Normal Distension: No distension Bowel sounds: Normal Tenderness: Nontender Organomegaly: No organomegaly - Back Back: Normal, Nontender - Extremities General upper extremity: Normal inspection, Nontender, Normal color, Normal ROM, Normal temperature General lower extremity: Normal inspection, Nontender, Normal color, Normal ROM, Normal temperature, Normal weight bearing. No: Alethea's sign - Neurological Neuro grossly intact: Yes Cognition: Normal Orientation: AAOx4 [place] Coma Scale Eye Opening: Spontaneous [place] Coma Scale Verbal: Oriented [place] Coma Scale Motor: Obeys Commands [place] Coma Scale Total: 15 Speech: Normal Motor strength normal: LUE, RUE, LLE, RLE Sensory: Normal - Psychological Associated symptoms: Normal affect, Normal mood - Skin Skin Temperature: Warm Skin Moisture: Dry Skin Color: Normal Course - Re-evaluation Re-evalutation: 03/21/19 01:04 Long discussion had with patient about blood pressure, blood sugar, weight loss, smoking cessation. I did give her counseling with regards to smoking cessation as well as weight loss. Currently her blood pressure is 130/90. Her heart rate is 75. Her labs are completely normal. I have advised that she follow-up with a primary care doctor for further evaluation and treatment. I find no emergencies at this time. Headache is resolved. She is nontoxic-appearing. Her vital signs are within normal limits. 03/21/19 01:04 Laboratory 03/20/19 03/20/19 03/20/19 21:14 21:14 21:14 WBC 10.2 RBC 4.62 Hgb 14.1 Hct 41.4 MCV 90 MCH 30.4 MCHC 34.0 RDW 13.2 Plt Count 221 Seg Neutrophils % 47.1 Lymphocytes % 45.2 H Monocytes % 5.8 Eosinophils % 1.5 Basophils % 0.4 Absolute Neutrophils 4.8 Absolute Lymphocytes 4.6 Absolute Monocytes 0.6 Absolute Eosinophils 0.2 Absolute Basophils 0.0 Sodium 138.8 Potassium 4.3 Chloride 100 Carbon Dioxide 27 Anion Gap 12 BUN 12 Creatinine 0.62 Est GFR ( Amer) > 60 Est GFR (Non-Af Amer) > 60 Glucose 107 Calcium 9.6 Total Bilirubin 0.5 Direct Bilirubin 0.4 Neonat Total Bilirubin Not Reportable Neonat Direct Bilirubin Not Reportable Neonat Indirect Bili Not Reportable AST 29 ALT 24 Alkaline Phosphatase 95 Total Protein 7.3 Albumin 4.3 Serum HCG, Qual NEGATIVE Urine Color Urine Appearance Urine pH Ur Specific [place] Urine Protein Urine Glucose (UA) Urine Ketones Urine Blood Urine Nitrite Urine Bilirubin Urine Urobilinogen Ur Leukocyte Esterase Urine WBC (Auto) Urine RBC (Auto) Squamous Epi Cells Auto Urine Mucus (Auto) Urine Ascorbic Acid 03/20/19 21:14 WBC RBC Hgb Hct MCV MCH MCHC RDW Plt Count Seg Neutrophils % Lymphocytes % Monocytes % Eosinophils % Basophils % Absolute Neutrophils Absolute Lymphocytes Absolute Monocytes Absolute Eosinophils Absolute Basophils Sodium Potassium Chloride Carbon Dioxide Anion Gap BUN Creatinine Est GFR ( Amer) Est GFR (Non-Af Amer) Glucose Calcium Total Bilirubin Direct Bilirubin Neonat Total Bilirubin Neonat Direct Bilirubin Neonat Indirect Bili AST ALT Alkaline Phosphatase Total Protein Albumin Serum HCG, Qual Urine Color YELLOW Urine Appearance CLEAR Urine pH 6.0 Ur Specific [place] 1.024 Urine Protein NEGATIVE Urine Glucose (UA) NEGATIVE Urine Ketones NEGATIVE Urine Blood NEGATIVE Urine Nitrite NEGATIVE Urine Bilirubin NEGATIVE Urine Urobilinogen 4.0 H Ur Leukocyte Esterase TRACE H Urine WBC (Auto) 3 Urine RBC (Auto) 4 Squamous Epi Cells Auto 4 Urine Mucus (Auto) RARE Urine Ascorbic Acid NEGATIVE - Vital Signs Vital signs: Temp Pulse Resp BP Pulse Ox 98.1 F 70 18 120/82 96 03/20/19 19:27 03/20/19 19:27 03/20/19 19:27 03/21/19 00:42 03/20/19 19:27 - Laboratory Result Diagrams: 03/20/19 21:14 03/20/19 21:14 Laboratory results interpreted by me: 03/20/19 03/20/19 21:14 21:14 Lymphocytes % 45.2 H Urine Urobilinogen 4.0 H Ur Leukocyte Esterase TRACE H Discharge - Discharge Clinical Impression: Dizziness Condition: Good Disposition: HOME, SELF-CARE Instructions: Dizziness ([facility]), High Blood Pressure ([facility]) Additional Instructions: As discussed you may benefit from having a outpatient work-up performed. You may benefit from also checking your blood sugar as an outpatient. In the event that your symptoms are getting worse please return. Referrals: [facility] [Provider Group] - Follow up in 3-5 days
[2019-03-21 00:43] VITALS: BP 120/82
== END 2019-03-21 00:44 | disposition home or self-care (01) ==
LOC: ER 19:20
DX: R42 Dizziness and giddiness (principal); R51 Headache; J45.909 Unspecified asthma, uncomplicated; F17.210 Nicotine dependence, cigarettes, uncomplicated; Z71.6 Tobacco abuse counseling; Z88.5 Allergy status to narcotic agent; Z88.2 Allergy status to sulfonamides
CPT/HCPCS: 36415; 80053; 81001; 84703; 85025; 99284

== ENCOUNTER 2019-10-12 07:32 | Emergency (ER) | payer SELFPAY ==
[2019-10-12 07:37] VITALS: BP 156/99
[2019-10-12 08:41] LABS: AMORPHOUS SEDIMENT,URINE TRACE /HPF; APPEARANCE,URINE SLIGHTLY-CLOUDY; BILIRUBIN,URINE NEGATIVE (NEGATIVE); COLOR,URINE YELLOW; GLUCOSE, URINE NEGATIVE (NEGATIVE); KETONES,URINE NEGATIVE (NEGATIVE); PROTEIN,URINE NEGATIVE (NEGATIVE); URINE SPECIFIC GRAVITY 1.016; UROBILINOGEN,URINE NEGATIVE mg/dL (<2.0)
[2019-10-12] MEDS ORDERED: KETOROLAC TROMETHAMINE 60 MG/2 ML SDV IM ONE (08:54)
--- NOTE | 2019-10-12 09:35 | ER Document Report ---
ED General - General Chief Complaint: Back Pain Stated Complaint: BACK PAIN Time Seen by Provider: 10/12/19 08:35 Notes: 43-year-old female presents with a complaint of back pain. She has had urinary urgency and frequency denies dysuria, fever or nausea. She had 2 doses of an antibiotic from a prior treatment and has taken both doses. She states that her symptoms improved slightly while taking the medication. Patient is on methadone and chronic pain management. TRAVEL OUTSIDE OF THE [place] IN LAST 30 DAYS: No - Related Data Allergies/Adverse Reactions: morphine [Morphine] Allergy (Intermediate, Verified 10/12/19 07:49) Hives codeine [Codeine] Allergy (Mild, Verified 10/12/19 07:49) Hives Sulfa (Sulfonamide Antibiotics) Allergy (Verified 10/12/19 07:49) prednisone [Prednisone] Adverse Reaction (Intermediate, Verified 10/12/19 07:49) Home Medications: methadone Past Medical History - Social History Smoking Status: Current Every Day Smoker Frequency of alcohol use: None Drug Abuse: None Family History: Reviewed & Not Pertinent Patient has suicidal ideation: No Patient has homicidal ideation: No Pulmonary Medical History: Reports: Hx Asthma, Hx Bronchitis, Hx Pneumonia Renal/ Medical History: Denies: Hx Peritoneal Dialysis Psychiatric Medical History: Reports: Hx Anxiety Past Surgical History: Reports: Hx Adenoidectomy, Hx Cholecystectomy - with ventral hernia repair, Hx Tonsillectomy - adenoids - Immunizations Immunizations up to date: Yes Hx Diphtheria, Pertussis, Tetanus Vaccination: Yes Review of Systems - Review of Systems Notes: Constitutional: Negative for fever. HENT: Negative for sore throat. Eyes: Negative for visual changes. Cardiovascular: Negative for chest pain. Respiratory: Negative for shortness of breath. Gastrointestinal: Negative for abdominal pain, vomiting or diarrhea. Genitourinary: + Urgency, + frequency. Musculoskeletal: + Back pain. Skin: Negative for rash. Neurological: Negative for headaches, weakness or numbness. 10 point ROS negative except as marked above and in HPI. Physical Exam - Vital signs Vitals: Temp Pulse Resp BP Pulse Ox 97.9 F 81 20 156/99 H 97 10/12/19 07:35 10/12/19 07:35 10/12/19 07:35 10/12/19 07:35 10/12/19 07:35 - Notes Notes: PHYSICAL EXAMINATION: Physical Exam: General: Well-nourished well-developed in no acute distress HEENT: NC/AT, pupils equal round and reactive to light, MM moist,nares clear, oropharynx clear, airway patent Neck: supple, no adenopathy, no masses. Good range of motion Lungs: clear, no wheezing, no rales no rhonchi CVS: Regular rate and rhythm no murmur gallop or rub Abdomen: Soft, active, nontender, no masses, no hepatosplenomegaly Ext: No edema, clubbing or cyanosis. Back: Tenderness over the sacroiliac region bilaterally Neuro: Alert and responsive, moving all 4 extremities on command, cranial nerves intact, no focal findings Skin: Intact no open lesions, no rash PSYCH: Normal mood, normal affect. Course - Re-evaluation Re-evalutation: 10/12/19 09:33 The patient urinalysis came back positive for nitrite, and a few WBCs. She will be treated empirically with antibiotics and encouraged to follow-up with her primary care doctor. - Vital Signs Vital signs: Temp Pulse Resp BP Pulse Ox 97.9 F 81 20 156/99 H 97 10/12/19 07:35 10/12/19 07:35 10/12/19 07:35 10/12/19 07:35 10/12/19 07:35 - Laboratory Laboratory results interpreted by me: 10/12/19 08:15 Urine Blood SMALL H Urine Nitrite (Reflex) POSITIVE H Leukocyte Esterase Rfl TRACE H Discharge - Discharge Clinical Impression: Urinary tract infection Qualifiers: Urinary tract infection type: site unspecified Hematuria presence: without hematuria Qualified Code(s): N39.0 - Urinary tract infection, site not specified Low back pain Qualifiers: Chronicity: unspecified Back pain laterality: unspecified Sciatica presence: without sciatica Qualified Code(s): M54.5 - Low back pain Condition: Good Disposition: HOME, SELF-CARE Instructions: Urinary Tract Infection ([facility]), Low Back Pain ([facility]) Additional Instructions: HOME CARE INSTRUCTIONS & INFORMATION: Thank you for choosing us for your medical needs. We hope you're satisfied with the care you received. After you leave, you must properly care for your problem and, at the same time, observe its progress. Any condition can change. Some illnesses can change rapidly over hours or days. If your condition worsens, return to the Emergency Department or see your physician promptly. ABOUT YOUR X-RAYS AND EKG'S: If you had an EKG or X-rays taken, they have been read by the Emergency Physician. The X-rays and EKG's will also be read by a Radiologist or Financial Cost Analyst within 24 hours. If discrepancies are noted, you will be notified by telephone. Please be certain the ED has a correct telephone number & address where you can be reached. Also, realize that some fractures or abnormalities do not show up on initial X-rays. If your symptoms continue, see your physician. ABOUT YOUR LABORATORY TEST: If you had laboratory tests, the results have been reviewed by the Emergency Physician. Some test results (for example cultures) may not be available for several days. You will be contacted if any test result shows you need additional treatment. Please be certain the ED has a correct telephone number and address where you can be reached. ABOUT YOUR MEDICATIONS: You will receive instructions on how to take your medicine on the prescription label you receive. Additional information may be provided by the Pharmacy. If you have questions afterwards, call the ED for clarification or further instructions. Some prescribed medications may cause drowsiness. Do not perform tasks such as driving a car or operating machinery without consulting your Pharmacist. If you feel you need a refill of pain medication, your condition will need re-evaluation. Please do not call for a refill of any medication. ABOUT YOUR SIGNATURE: Signature of this document acknowledges to followin. Understanding that you received emergency treatment and that you may be r eleased before al medical problems are known or treated. Please be certain the ED has a correct phone number & address where you can be reached. 2. Acknowledgement that you will arrange for follow-up care as recommended. 3. Authorization for the Emergency Physician to provide information to your follow-up Physician in order to maximize your care. AT ANY TIME, IF YOUR SYMPTOMS CHANGE SIGNIFICANTLY OR WORSEN OR YOU DEVELOP NEW SYMPTOMS, RETURN TO THE EMERGENCY DEPARTMENT IMMEDIATELY FOR RE-EVALUATION. OUR GOAL IS TO PROVIDE EXCELLENT MEDICAL CARE! WE HOPE THAT WE HAVE MET YOUR EXPECTATIONS DURING YOUR EMERGENCY DEPARTMENT VISIT AND THAT YOU FEEL YOU HAVE RECEIVED EXCELLENT CARE! Prescriptions: Cephalexin Monohydrate [Keflex 500 mg Capsule] 500 mg PO Q8 10 Days capsule
== END 2019-10-12 10:09 | disposition home or self-care (01) ==
LOC: ER 07:32
DX: N39.0 Urinary tract infection, site not specified (principal); M54.5 Low back pain; R39.15 Urgency of urination; F17.200 Nicotine dependence, unspecified, uncomplicated; Z88.6 Allergy status to analgesic agent; Z88.2 Allergy status to sulfonamides; Z90.49 Acquired absence of other specified parts of digestive tract
CPT/HCPCS: 99283; 96372; 87086; 81001; J1885

== ENCOUNTER 2019-10-19 10:45 | Emergency (ER) | payer SELFPAY ==
[2019-10-19] MEDS ORDERED: BUTALB/ACETAMINOPHEN/CAFFEINE 1 TAB EACH PO ONE (11:14)
--- NOTE | 2019-10-19 11:16 | ER Document Report ---
ED Medical Screen (RME) - General Chief Complaint: Headache Stated Complaint: HEADACHE Time Seen by Provider: 10/19/19 11:06 Mode of Arrival: Ambulatory Information source: Patient Notes: Patient is a 43-year-old female presenting to the emergency department with complaint of headache. Patient reports she has had a headache intermittently over the last week. She believes it is associated with stress or elevated blood pressure. Patient has not been formally treated or diagnosed with hypertension. Patient denies any chest pain or shortness of breath, denies history of migraines. She does report that she is a smoker. Patient has declined any work-up initiated in triage. She would like medication for her headache and to be seen by a second provider in the back. She is asking about being started on antihypertensives or diuretics. I told patient this would not be appropriate without a work-up and would most likely be initiated by a primary care physician. I have greeted and performed a rapid initial assessment of this patient. A comprehensive ED assessment and evaluation of the patient, analysis of test results and completion of the medical decision making process will be conducted by additional ED providers. I have specifically instructed the patient or family members with the patient to immediately return to any nursing staff should anything change in the patient's condition or with their chief complaint. TRAVEL OUTSIDE OF THE [place] IN LAST 30 DAYS: No - Related Data Allergies/Adverse Reactions: morphine [Morphine] Allergy (Intermediate, Verified 10/19/19 11:07) Hives codeine [Codeine] Allergy (Mild, Verified 10/19/19 11:07) Hives prednisone [Prednisone] Adverse Reaction (Intermediate, Verified 10/19/19 11:07) Sulfa (Sulfonamide Antibiotics) Adverse Reaction (Intermediate, Verified 10/19/19 11:07) GI upset Past Medical History Pulmonary Medical History: Reports: Hx Asthma, Hx Bronchitis, Hx Pneumonia Renal/ Medical History: Denies: Hx Peritoneal Dialysis Psychiatric Medical History: Reports: Hx Anxiety Past Surgical History: Reports: Hx Adenoidectomy, Hx Cholecystectomy - with ventral hernia repair, Hx Tonsillectomy - adenoids - Immunizations Immunizations up to date: Yes Hx Diphtheria, Pertussis, Tetanus Vaccination: Yes Physical Exam - Vital signs Vitals: Temp Pulse Resp BP Pulse Ox 98.5 F 79 16 158/91 H 94 10/19/19 11:05 10/19/19 11:05 10/19/19 11:05 10/19/19 11:05 10/19/19 11:05 Course - Vital Signs Vital signs: Temp Pulse Resp BP Pulse Ox 98.5 F 79 16 158/91 H 94 10/19/19 11:05 10/19/19 11:05 10/19/19 11:05 10/19/19 11:05 10/19/19 11:05
[2019-10-19] MEDS ORDERED: DIPHENHYDRAMINE HCL 50 MG/ML VIAL IV ONE (12:08)
[2019-10-19] MEDS ORDERED: NORMAL SALINE 1000 ML 1,000 ML IV ONE (12:08)
[2019-10-19] MEDS ORDERED: KETOROLAC TROMETHAMINE INJ/PF 30 MG/1 ML SDV IV ONE (12:08)
[2019-10-19] MEDS ORDERED: PROCHLORPERAZINE EDISYLATE INJ 10 MG/2 ML VIAL IV ONE (12:08)
--- NOTE | 2019-10-19 12:12 | ER Document Report ---
ED Headache - General Chief Complaint: Headache Stated Complaint: HEADACHE Time Seen by Provider: 10/19/19 11:50 Primary Care Provider: [facility] [Provider Group] - Follow up as needed Mode of Arrival: Ambulatory Information source: Patient Notes: Patient presents complaining of headache pain to the frontal area of her head off and on for the past 5 to 6 days. Patient states headache pain improves after taking ibuprofen. Patient reports increased stress at home. Patient also reports that her blood pressure was mildly elevated and is unsure if her headache pain may be attributed to this. Patient denies any fever nausea or vomiting. Patient denies any head injury. TRAVEL OUTSIDE OF THE [place] IN LAST 30 DAYS: No - HPI Patient complains to provider of: Headache Onset: Last week Onset was: Gradual Timing: Still present Quality of pain: Achy Pain Level: 3 Associated symptoms: denies: Confusion, Dizzy, Fever, Nausea/vomiting, Photo phobia, Speech problems, Stiff neck, Trouble walking Similar symptoms previously: Yes Recently seen / treated by doctor: No - Related Data Allergies/Adverse Reactions: morphine [Morphine] Allergy (Intermediate, Verified 10/19/19 11:07) Hives codeine [Codeine] Allergy (Mild, Verified 10/19/19 11:07) Hives prednisone [Prednisone] Adverse Reaction (Intermediate, Verified 10/19/19 11:07) Sulfa (Sulfonamide Antibiotics) Adverse Reaction (Intermediate, Verified 10/19/19 11:07) GI upset Home Medications: methadone Past Medical History - General Information source: Patient - Social History Smoking Status: Current Every Day Smoker Chew tobacco use (# tins/day): No Frequency of alcohol use: None Drug Abuse: None Occupation: None Family History: Reviewed & Not Pertinent Patient has suicidal ideation: No Patient has homicidal ideation: No Pulmonary Medical History: Reports: Hx Asthma, Hx Bronchitis, Hx Pneumonia Neurological Medical History: Reports: Hx Migraine Renal/ Medical History: Denies: Hx Peritoneal Dialysis Psychiatric Medical History: Reports: Hx Anxiety Past Surgical History: Reports: Hx Adenoidectomy, Hx Cholecystectomy - with ventral hernia repair, Hx Tonsillectomy - adenoids - Immunizations Immunizations up to date: Yes Hx Diphtheria, Pertussis, Tetanus Vaccination: Yes Review of Systems - Review of Systems Constitutional: No symptoms reported. denies: Fever, Recent illness EENT: No symptoms reported Cardiovascular: No symptoms reported Respiratory: No symptoms reported. denies: Cough Gastrointestinal: No symptoms reported. denies: Nausea, Vomiting Genitourinary: No symptoms reported Female Genitourinary: No symptoms reported Musculoskeletal: No symptoms reported. denies: Back pain, Neck pain Skin: No symptoms reported Hematologic/Lymphatic: No symptoms reported Neurological/Psychological: Headaches. denies: Confusion, Weakness, Gait changes Physical Exam - Vital signs Vitals: Temp Pulse Resp BP Pulse Ox 98.5 F 79 16 158/91 H 94 10/19/19 11:05 10/19/19 11:05 10/19/19 11:05 10/19/19 11:05 10/19/19 11:05 - General General appearance: Appears well, Alert In distress: None - HEENT Head: Normocephalic, Atraumatic Eyes: Normal Conjunctiva: Normal Extraocular movements intact: Yes Eyelashes: Normal Pupils: PERRL Ears: Normal External canal: Normal Tympanic membrane: Normal Nasal: Normal Mouth/Lips: Normal Mucous membranes: Normal Neck: Normal, Supple. No: Brudzinski, Lymphadenopathy, Meningismus - Respiratory Respiratory status: No respiratory distress Chest status: Nontender Breath sounds: Normal. No: Rales, Rhonchi, Stridor, Wheezing Chest palpation: Normal - Cardiovascular Rhythm: Regular Heart sounds: S1 appreciated, S2 appreciated - Abdominal Inspection: Morbidly Obese Tenderness: Nontender - Back Back: Tender - Bilateral trapezius muscle tenderness. No: CVA tenderness, Vertebra tenderness - Extremities General upper extremity: Normal inspection, Normal strength. No: Edema General lower extremity: Normal inspection, Normal strength. No: Edema - Neurological Neuro grossly intact: Yes Cognition: Normal Licha Coma Scale Eye Opening: Spontaneous [place]ich[place] Coma Scale Verbal: Oriented [place] Coma Scale Motor: Obeys Commands Licha Coma Scale Total: 15 Speech: Normal Cranial nerves: Normal - Psychological Associated symptoms: Normal affect, Normal mood - Skin Skin Temperature: Warm Skin Moisture: Dry Skin Color: Normal Course - Re-evaluation Re-evalutation: 10/19/19 12:24 Patient refuses any IV fluids or IV medications. Patient declines any laboratory studies at this time. Patient states that she does have insurance and she would like to keep cost down. Patient is agreeable with a Toradol injection at this time. The patient presents with headache without signs of [employer] SUPER[employer] bleed, stroke, infection, or other serious etiology. The patient is neurologically intact. Given the extremely low risk of these diagnoses further testing and evaluation for these possibilities does not appear to be indicated at this time. The patient has been instructed to return if the symptoms worsen or change in any way. - Vital Signs Vital signs: Temp Pulse Resp BP Pulse Ox 98.2 F 95 20 131/87 H 95 10/19/19 12:46 10/19/19 12:46 10/19/19 12:46 10/19/19 12:46 10/19/19 12:46 Discharge - Discharge Clinical Impression: Trapezius muscle spasm Headache Qualifiers: Headache type: unspecified Headache chronicity pattern: unspecified pattern Intractability: not intractable Qualified Code(s): R51 - Headache Condition: Stable Disposition: HOME, SELF-CARE Instructions: Headache ([facility]), Muscle Relaxers ([facility]), Muscle Strain ([facility]), Toradol Injection ([facility]) Additional Instructions: Return immediately for any new or worsening symptoms Followup with your primary care provider, call tomorrow to make a followup appointment Prescriptions: Cyclobenzaprine HCl [Flexeril 10 Mg Tablet] 10 mg PO TID #15 tablet Naproxen [Naprosyn 250 Nmg Tablet] 1 tab PO BID #14 tablet Referrals: [facility] [Provider Group] - Follow up as needed
[2019-10-19] MEDS ORDERED: KETOROLAC TROMETHAMINE 60 MG/2 ML SDV IM ONE (12:23)
[2019-10-19 12:47] VITALS: BP 131/87
== END 2019-10-19 12:46 | disposition home or self-care (01) ==
LOC: ER 10:45
DX: R51 Headache (principal); M62.838 Other muscle spasm; E66.01 Morbid (severe) obesity due to excess calories; F17.200 Nicotine dependence, unspecified, uncomplicated; Z88.6 Allergy status to analgesic agent; Z88.2 Allergy status to sulfonamides; Z90.49 Acquired absence of other specified parts of digestive tract
CPT/HCPCS: 99283; 96372; J3490; J1885

== ENCOUNTER 2019-11-05 13:08 | Emergency (ER) | payer SELFPAY ==
--- NOTE | 2019-11-05 13:22 | ER Document Report ---
ED Medical Screen (RME) - General Stated Complaint: BLOOD PRESSURE ISSUES Notes: Patient is a 43-year-old white female with no significant past medical history presents to the emergency department with a chief complaint of elevated blood pressure. She states she is been having some headaches recently but was seen and considered a migraine. She states that she was still having headache and went to see [facility] because she noticed her blood pressure was up. She states they started on her lisinopril and some diuretic. She has been taking these medications without any improvement. She complains of ongoing headaches, neck pain and dizziness. Denies any chest pain or shortness of breath. I have treated and performed a rapid initial assessment of this patient. A comprehensive ED assessment and evaluation of the patient, analysis of test results and completion of medical decision making process will be conducted by additional ED providers. PHYSICAL EXAMINATION: GENERAL: A&Ox4. Answers questions appropriately. Anxious appearing TRAVEL OUTSIDE OF THE [place] IN LAST 30 DAYS: No - Related Data Allergies/Adverse Reactions: morphine [Morphine] Allergy (Intermediate, Verified 10/19/19 11:07) Hives codeine [Codeine] Allergy (Mild, Verified 10/19/19 11:07) Hives prednisone [Prednisone] Adverse Reaction (Intermediate, Verified 10/19/19 11:07) Sulfa (Sulfonamide Antibiotics) Adverse Reaction (Intermediate, Verified 10/19/19 11:07) GI upset Past Medical History Pulmonary Medical History: Reports: Hx Asthma, Hx Bronchitis, Hx Pneumonia Neurological Medical History: Reports: Hx Migraine Renal/ Medical History: Denies: Hx Peritoneal Dialysis Psychiatric Medical History: Reports: Hx Anxiety Past Surgical History: Reports: Hx Adenoidectomy, Hx Cholecystectomy - with ventral hernia repair, Hx Tonsillectomy - adenoids - Immunizations Immunizations up to date: Yes Hx Diphtheria, Pertussis, Tetanus Vaccination: Yes Physical Exam - Vital signs Vitals: Temp Pulse Resp BP Pulse Ox 98.2 F 98 16 161/92 H 93 11/05/19 13:12 11/05/19 13:12 11/05/19 13:12 11/05/19 13:12 11/05/19 13:12 Course - Vital Signs Vital signs: Temp Pulse Resp BP Pulse Ox 98.2 F 98 16 161/92 H 93 11/05/19 13:12 11/05/19 13:12 11/05/19 13:12 11/05/19 13:12 11/05/19 13:12
--- NOTE | 2019-11-05 13:46 | RADIOLOGY REPORT (SQ) ---
EXAM DESCRIPTION: CHEST 2 VIEWS COMPLETED DATE/TIME: 11/05/2019 1:35 pm REASON FOR STUDY: HTN, ADAN, dizzy COMPARISON: 11/01/2013 EXAM PARAMETERS: NUMBER OF VIEWS: two views TECHNIQUE: Digital Frontal and Lateral radiographic views of the chest acquired. RADIATION DOSE: NA LIMITATIONS: none FINDINGS: LUNGS AND PLEURA: No opacities, masses or pneumothorax. No pleural effusion. There is hyp erexpansion. MEDIASTINUM AND HILAR STRUCTURES: No masses or contour abnormalities. HEART AND VASCULAR STRUCTURES: Heart normal size. No evidence for failure. BONES: No acute findings. HARDWARE: None in the chest. OTHER: No other significant finding. IMPRESSION: NO ACUTE RADIOGRAPHIC FINDING IN THE CHEST. TECHNICAL DOCUMENTATION: JOB ID: [id number] 2010 [employer]- All Rights Reserved Reading location - IP/workstation name: [email or web address]
--- NOTE | 2019-11-05 13:59 | RADIOLOGY REPORT (SQ) ---
EXAM DESCRIPTION: CT HEAD WITHOUT COMPLETED DATE/TIME: 11/05/2019 1:43 pm REASON FOR STUDY: HTN, ADAN, dizzy COMPARISON: None. TECHNIQUE: Axial images acquired through the brain without intravenous contrast. Images reviewed wi th bone, brain and subdural windows. Additional sagittal and coronal reconstructions were generated. Images stored on PACS. All CT scanners at this facility use dose modulation, iterative reconstruction, and/or weight based d osing when appropriate to reduce radiation dose to as low as reasonably achievable (ALARA). [facility]: Dose Right [facility]: CareDose [facility]: Dose Right [facility]: Teradose 4D [facility]: [employer] RADIATION DOSE: CT Rad equipment meets quality standard of care and radiation dose reduction techniq ues were employed. CTDIvol: 53.2 mGy. DLP: 1017 mGy-cm. mGy. LIMITATIONS: None. FINDINGS: VENTRICLES: Normal size and contour. CEREBRUM: No masses. No hemorrhage. No midline shift. No evidence for acute infarction. Normal gra y/white matter differentiation. No areas of low density in the white matter. CEREBELLUM: No masses. No hemorrhage. No alteration of density. No evidence for acute infarction. EXTRAAXIAL SPACES: No fluid collections. No masses. ORBITS AND GLOBE: No intra- or extraconal masses. Normal contour of globe without masses. CALVARIUM: No fracture. PARANASAL SINUSES: No fluid or mucosal thickening. SOFT TISSUES: No mass or hematoma. OTHER: No other significant finding. IMPRESSION: NORMAL BRAIN CT WITHOUT CONTRAST. EVIDENCE OF ACUTE STROKE: NO. COMMENT: Quality ID # [id number]: Final reports with documentation of one or more dose reduction techniques (e.g., Automated exposure control, adjustment of the mA and/or kV according to patient size, use of iterative reconstruction technique) TECHNICAL DOCUMENTATION: JOB ID: [id number] 2010 [employer]- All Rights Reserved Reading location - IP/workstation name: [email or web address]
--- NOTE | 2019-11-05 14:27 | ER Document Report ---
ED Blood Pressure Problem - General Chief Complaint: Blood Pressure Problem Stated Complaint: BLOOD PRESSURE ISSUES Time Seen by Provider: 11/05/19 13:35 Primary Care Provider: KAILA MARTELL MD [Primary Care Provider] - Follow up as needed Mode of Arrival: Ambulatory Information source: Patient Notes: 43-year-old female presented to ED for elevated blood pressure. She has no other significant changes. She states she was seen in the doctor's office 2 days ago and started on blood pressure management and then today blood pressure was low. She states she is also been having some headaches and was considering it was a migraine. She states she came today because she had the headache again and the blood pressure was up when she went to see [facility]. She has been started on lisinopril and diuretics. She states she is taking the medications and her blood pressure is not coming down. Her blood pressure is 123/78 in the ED. She states she is continuing to have headaches and neck pain. They did do a head CT in the triage area as well as a chest x-ray which is negative for any acute changes. She denies any chest pain or shortness of breath. TRAVEL OUTSIDE OF THE [place] IN LAST 30 DAYS: No - HPI Patient complains to provider of: High blood pressure Onset: Other - She was diagnosed with high blood pressure at the doctor's office and started on medications 2 days ago Onset/Duration: Gradual Quality of pain: Achy - Neck and head Severity: Moderate Pain Level: 4 Problem is: Chronic problem Pt currently taking medication for problem: Yes Associated symptoms: Headache Similar symptoms previously: Yes Recently seen / treated by doctor: Yes - Related Data Allergies/Adverse Reactions: morphine [Morphine] Allergy (Intermediate, Verified 10/19/19 11:07) Hives codeine [Codeine] Allergy (Mild, Verified 10/19/19 11:07) Hives prednisone [Prednisone] Adverse Reaction (Intermediate, Verified 10/19/19 11:07) Sulfa (Sulfonamide Antibiotics) Adverse Reaction (Intermediate, Verified 05/01 11:07) GI upset Home Medications: lisinopril 10mg, HCTZ 25mg Past Medical History - General Information source: Patient - Social History Smoking Status: Current Every Day Smoker Cigarette use (# per day): Yes Smoking Education Provided: Yes - 4 minutes Frequency of alcohol use: None Drug Abuse: None Lives with: Family Family History: Reviewed & Not Pertinent Patient has suicidal ideation: No Patient has homicidal ideation: No - Past Medical History Cardiac Medical History: Reports: Hx Hypertension Pulmonary Medical History: Reports: Hx Asthma, Hx Bronchitis, Hx Pneumonia EENT Medical History: Reports: None Neurological Medical History: Reports: Hx Migraine Endocrine Medical History: Reports: None Renal/ Medical History: Reports: None Malignancy Medical History: Reports: None GI Medical History: Reports: None Musculoskeletal Medical History: Reports None Skin Medical History: Reports None Psychiatric Medical History: Reports: Hx Anxiety Traumatic Medical History: Reports: None Infectious Medical History: Reports: None Past Surgical History: Reports: Hx Adenoidectomy, Hx Cholecystectomy - with ventral hernia repair, Hx Tonsillectomy - adenoids - Immunizations Immunizations up to date: Yes Hx Diphtheria, Pertussis, Tetanus Vaccination: Yes Review of Systems - Review of Systems Constitutional: No symptoms reported EENT: No symptoms reported Cardiovascular: No symptoms reported Respiratory: No symptoms reported. denies: Cough, Short of breath Gastrointestinal: No symptoms reported Genitourinary: No symptoms reported Female Genitourinary: No symptoms reported Musculoskeletal: Muscle pain, Muscle stiffness, Neck pain Skin: No symptoms reported Hematologic/Lymphatic: No symptoms reported Neurological/Psychological: Headaches -: Yes All other systems reviewed and negative Physical Exam - Vital signs Vitals: Temp Pulse Resp BP Pulse Ox 98.2 F 98 16 161/92 H 93 11/05/19 13:12 11/05/19 13:12 11/05/19 13:12 11/05/19 13:12 11/05/19 13:12 Interpretation: Normal - General General appearance: Appears well, Alert - HEENT Head: Normocephalic, Atraumatic Eyes: Normal Pupils: PERRL Ears: Normal External canal: Normal Tympanic membrane: Normal Sinus: Normal Nasal: Normal Mouth/Lips: Normal Mucous membranes: Normal Pharynx: Normal Neck: Normal - Respiratory Respiratory status: No respiratory distress Chest status: Nontender Breath sounds: Normal Chest palpation: Normal - Cardiovascular Rhythm: Regular Heart sounds: Normal auscultation Murmur: No - Abdominal Inspection: Normal Distension: No distension Bowel sounds: Normal Tenderness: Nontender Organomegaly: No organomegaly - Back Back: Normal, Tender - Right neck muscles tender. No: Vertebra tenderness - Extremities General upper extremity: Normal inspection, Nontender, Normal color, Normal ROM, Normal temperature General lower extremity: Normal inspection, Nontender, Normal color, Normal ROM, Normal temperature, Normal weight bearing. No: Alethea's sign - Neurological Neuro grossly intact: Yes Cognition: Normal Orientation: AAOx4 Licha Coma Scale Eye Opening: Spontaneous Licha Coma Scale Verbal: Oriented Licha Coma Scale Motor: Obeys Commands Licha Coma Scale Total: 15 Speech: Normal Motor strength normal: LUE, RUE, LLE, RLE Sensory: Normal - Psychological Associated symptoms: Normal affect, Normal mood - Skin Skin Temperature: Warm Skin Moisture: Dry Skin Color: Normal Course - Re-evaluation Re-evalutation: 11/05/19 15:25 CT, chest x-ray, and lab results discussed with patient and written report of all given to patient to follow-up with her primary care doctor. She is very concerned about being in the emergency room with the viral patient is been in the emergency room. But she is also concerned that she has muscle pain in the back of her neck. I have discharged her home with a prescription for Robaxin f or her muscle pain. She has been treated with Tylenol for her headache. She is on methadone for chronic pain. Blood pressure is stable at this time we have discussed this and she will follow-up with her primary doctor. - Vital Signs Vital signs: Temp Pulse Resp BP Pulse Ox 98.8 F 98 16 106/70 94 11/05/19 15:16 11/05/19 13:12 11/05/19 15:24 11/05/19 15:12 11/05/19 15:09 - Laboratory Result Diagrams: 11/05/19 14:14 11/05/19 14:14 Laboratory results interpreted by me: 11/05/19 14:14 Sodium 136.4 L Chloride 95 L Carbon Dioxide 32 H Total Protein 8.6 H - Diagnostic Test Radiology reviewed: Image reviewed, Reports reviewed Discharge - Discharge Clinical Impression: Headache Qualifiers: Headache type: unspecified Headache chronicity pattern: acute headache Intrac tability: not intractable Qualified Code(s): R51 - Headache Neck muscle strain Qualifiers: Encounter type: initial encounter Qualified Code(s): S16.1XXA - Strain of muscle, fascia and tendon at neck level, initial encounter Condition: Stable Disposition: HOME, SELF-CARE Additional Instructions: HEADACHE: The physician does not feel that the headache you are experiencing has a serious underlying cause. Most headaches are due to emotional stress, with resultant muscle tension (tension headache). Occasionally, headaches are secondary to changes in the blood vessels of the scalp (vascular headache and migraine headache). Sometimes, a headache is the first symptom of another developing illness, such as a viral infection. You have no evidence of stroke, bleeding, meningitis, or other serious cause of your headache. The treatment of headaches varies with the severity and cause of the pain. Not all headaches need pain shots. In fact, there is evidence that using narcotics for headaches may make them worse in the long run. The physician will determine the therapy that's in your best interest. If you develop a fever, if the headache is different from any you've previously experienced, or if the headache progressively worsens, then call your physician at once or go to the emergency room. ANTINAUSEA MEDICATION: You have been given a medication to suppress nausea and vomiting. This type of medication can be given as a shot, pill, or suppository. It will usually last for many hours. Pills and shots usually last six to eight hours, suppositories last about 12 hours. For the typical illness, only one or two doses of the medication may be necessary. Mild lightheadedness may occur. This type of medicine can cause drowsiness. Do not drive or operate dangerous machinery while under its influence. Do not mix with alcohol. See your doctor at once if you have muscle spasms or tightness, or uncontrollable motions (particularly of the neck, mouth, or jaw). Persistent vomiting or severe lightheadedness should also be evaluated by the physician. Acetaminophen Acetaminophen may be taken for pain relief or fever control. It's much safer than aspirin, offering a wider range of "safe" dosages. It is safe during . Some brand names are Tylenol, Panadol, Datril, Anacin 3, Tempra, and Liquiprin. Acetaminophen can be repeated every four hours. The following are maximum recommended dosages: WEIGHT Dose Drops Elixir Chewable(80mg) (LBS.) drprs=droppers tsp=teaspoon 6 40 mg .4 ml (1/2) 6-11 80 mg .8 ml (full) 1/2 tsp 1 tab 12-16 120 mg 1 1/2 drprs 3/4 tsp 1 1/2 tabs 17-23 160 mg 2 drprs 1 tsp 2 tabs 24-30 240 mg 3 drprs 1 1/2 tsp 3 tabs 30-35 320 mg 2 tsp 4 tabs 36-41 360 mg 2 1/4 tsp 4 1/2 tabs 42-47 400 mg 2 1/2 tsp 5 tabs 48-53 480 mg 3 tsp 6 tabs 54-59 520 mg 3 1/4 tsp 6 1/2 tabs 60-64 560 mg 3 1/2 tsp 7 tabs 65-70 600 mg 3 3/4 tsp 7 1/2 tabs 71-76 640 mg 4 tsp 8 tabs 77-82 720 mg 4 1/2 tsp 9 tabs 83-88 800 mg 5 tsp 10 tabs >89 pounds or adults 650 mg to 900 mg Acetaminophen can be repeated every four hours. Maximum daily dose not to exceed 4000 mg. These maximum recommended dosages are slightly higher than the dosages written on the product container, but these dosages are very safe and well below the toxic dosage for acetaminophen. I have given you Tylenol for your headache. Your blood pressure has been normal throughout your stay. The small area that she states is hurting on your neck is a muscle tenderness. Please follow-up with your primary care doctor and let them know that your blood pressure when you left was 107/70. You are on methadone for your chronic pain. Please use this as ordered and then I will give you a muscle relaxer that you can use at night for your muscle pain. FOLLOW-UP CARE: If you have been referred to a physician for follow-up care, call the physicians office for an appointment as you were instructed or within the next two days. If you experience worsening or a significant change in your symptoms, notify the physician immediately or return to the Emergency Department at any time for re-evaluation. Prescriptions: Methocarbamol [Robaxin 500 mg Tablet] 500 mg PO QHS #10 tablet Referrals: KAILA MARTELL MD [Primary Care Provider] - Follow up as needed
[2019-11-05 14:30] LABS: ABSOLUTE EOSINOPHILS # (AUTO) 0.1 10^3/uL (0.0-0.6); ABSOLUTE LYMPHOCYTES (AUTO) 2.5 10^3/uL (0.5-4.7); ABSOLUTE MONOCYTES (AUTO) 0.5 10^3/uL (0.1-1.4); BASOPHILS % (AUTO) 0.2 % (0-2); EOSINOPHILS % (AUTO) 0.7 % (0-6); HEMATOCRIT 43.1 % (36.0-47.0); HEMOGLOBIN 14.8 g/dL (12.0-15.5); LYMPHOCYTES % (AUTO) 27.4 % (13-45); MEAN CORPUSCULAR HEMOGLOBIN 30.6 pg (27.0-33.4); MEAN CORPUSCULAR HGB CONC 34.4 g/dL (32.0-36.0); MEAN CORPUSCULAR VOLUME 89 fl (80-97); MONOCYTES % (AUTO) 5.5 % (3-13); PLATELET COUNT 240 10^3/uL (150-450); RED BLOOD COUNT 4.85 10^6/uL (3.72-5.28); RED CELL DISTRIBUTION WIDTH 13.2 % (11.5-14.0); SEGMENTED NEUTROPHILS % (AUTO) 66.2 % (42-78); TOTAL CELLS COUNTED % (AUTO) 100 %; WHITE BLOOD COUNT 9.1 10^3/uL (4.0-10.5)
[2019-11-05] MEDS ORDERED: ACETAMINOPHEN 325 MG TABLET PO ONE (14:35)
[2019-11-05 14:49] LABS: ALBUMIN 4.7 g/dL (3.5-5.0); ALKALINE PHOSPHATASE 100 U/L (38-126); ANION GAP 9 (5-19); ASPARTATE AMINO TRANSFERASE 23 U/L (14-36); BILIRUBIN,DIRECT 0.3 mg/dL (0.0-0.4); BILIRUBIN,TOTAL 0.5 mg/dL (0.2-1.3); BLOOD UREA NITROGEN 17 mg/dL (7-20); CALCIUM 9.7 mg/dL (8.4-10.2); CARBON DIOXIDE 32 mmol/L (22-30); CHLORIDE 95 mmol/L (98-107); CREATINE KINASE 43 U/L (30-135); GLUCOSE 109 mg/dL (75-110); POTASSIUM 4.4 mmol/L (3.6-5.0); TOTAL PROTEIN 8.6 g/dL (6.3-8.2)
[2019-11-05 14:51] LABS: INTERNATIONAL RATION (INR) 0.93; PROTHROMBIN TIME 12.4 SEC (11.4-15.4)
[2019-11-05 14:52] LABS: PARTIAL THROMBOPLASTIN TIME 29.2 SEC (23.5-35.8)
[2019-11-05 15:18] VITALS: BP 106/70
--- NOTE | 2019-11-05 19:51 | EKG REPORT ---
SEVERITY:- BORDERLINE ECG - SINUS RHYTHM BORDERLINE T ABNORMALITIES, ANTERIOR LEADS : Confirmed by: Marty Braxton MD 05-Nov-2019 19:51:22
== END 2019-11-05 15:42 | disposition home or self-care (01) ==
LOC: ER 13:08
DX: S16.1XXA Strain of muscle, fascia and tendon at neck level, initial encounter (principal); X58.XXXA Exposure to other specified factors, initial encounter; I10 Essential (primary) hypertension; R51 Headache; J45.909 Unspecified asthma, uncomplicated; F17.210 Nicotine dependence, cigarettes, uncomplicated; Z71.6 Tobacco abuse counseling; Z88.6 Allergy status to analgesic agent; Z88.5 Allergy status to narcotic agent
CPT/HCPCS: 36415; 70450; 71046; 80053; 82550; 84484; 85025; 85610; 85730; 93005; 93010; 99284

== ENCOUNTER 2019-11-06 10:53 | Emergency (ER) | payer SELFPAY ==
[2019-11-06] MEDS ORDERED: KETOROLAC TROMETHAMINE INJ/PF 30 MG/1 ML SDV IV ONE ×2 (11:06→11:26)
[2019-11-06] MEDS ORDERED: ONDANSETRON HCL INJ/PF 4 MG/2 ML SDV IV ONE (11:07)
--- NOTE | 2019-11-06 11:07 | ER Document Report ---
ED Medical Screen (RME) - General Chief Complaint: Flank Pain Stated Complaint: BACK PAIN Time Seen by Provider: 11/06/19 11:01 Primary Care Provider: KAILA MARTELL MD [Primary Care Provider] - Follow up as needed Mode of Arrival: Ambulatory Information source: Patient Notes: Patient presents complaining of right flank pain that started this morning with nausea and vomiting. Patient reports some decreased urine output. Patient denies any fever. Patient denies any abdominal tenderness. I have greeted and performed a rapid initial assessment of this patient. A comprehensive ED assessment and evaluation of the patient, analysis of test results and completion of the medical decision making process will be conducted by additional ED providers. TRAVEL OUTSIDE OF THE [place] IN LAST 30 DAYS: No - Related Data Allergies/Adverse Reactions: morphine [Morphine] Allergy (Intermediate, Verified 10/19/19 11:07) Hives codeine [Codeine] Allergy (Mild, Verified 10/19/19 11:07) Hives prednisone [Prednisone] Adverse Reaction (Intermediate, Verified 10/19/19 11:07) Sulfa (Sulfonamide Antibiotics) Adverse Reaction (Intermediate, Verified 10/19/19 11:07) GI upset Home Medications: Methadone. Lisinopril. Hydrochlorothiazide Past Medical History - Social History Frequency of alcohol use: None Drug Abuse: None - Past Medical History Cardiac Medical History: Reports: Hx Hypertension Pulmonary Medical History: Reports: Hx Asthma, Hx Bronchitis, Hx Pneumonia Neurological Medical History: Reports: Hx Migraine Renal/ Medical History: Denies: Hx Peritoneal Dialysis Psychiatric Medical History: Reports: Hx Anxiety Past Surgical History: Reports: Hx Adenoidectomy, Hx Cholecystectomy - with ventral hernia repair, Hx Tonsillectomy - adenoids - Immunizations Immunizations up to date: Yes Hx Diphtheria, Pertussis, Tetanus Vaccination: Yes Physical Exam - Vital signs Vitals: Temp Pulse Resp BP Pulse Ox 98.9 F 111 H 22 H 186/102 H 94 11/06/19 10:58 11/06/19 10:58 11/06/19 10:58 11/06/19 10:58 11/06/19 10:58 - Back Back: CVA tenderness - right Course - Vital Signs Vital signs: Temp Pulse Resp BP Pulse Ox 98.9 F 111 H 22 H 186/102 H 94 11/06/19 10:58 11/06/19 10:58 11/06/19 10:58 11/06/19 10:58 11/06/19 10:58 Doctor's Discharge - Discharge Referrals: KAILA MARTELL MD [Primary Care Provider] - Follow up as needed
--- NOTE | 2019-11-06 11:19 | ER Document Report ---
ED GI/ - General Chief Complaint: Flank Pain Stated Complaint: BACK PAIN Time Seen by Provider: 11/06/19 11:01 Primary Care Provider: KAILA MARTELL MD [NO LOCAL MD] - Follow up as needed Mode of Arrival: Ambulatory Notes: CHIEF COMPLAINT: Right flank pain and vomiting HPI: 43-year-old female presenting to the emergency department complaining of sudden onset of right back pain with no radiation into the right flank and right lower quadrant region with nausea vomiting at home. Pain does not change with position or movement. Patient reports that she has no personal history of ki dney stones but mother has history of kidney stones. Patient denies trauma. Patient denies fever. Patient reports she has frequency of urination this morning ROS: See HPI - all other systems were reviewed and are otherwise negative Constitutional: no fever Eyes: no drainage, no blurred vision ENT: no runny nose, no sore throat Cardiovascular: no chest pain Resp: no SOB, no cough GI: Positive vomiting, no diarrhea, positive abdominal pain : no dysuria Integumentary: no rash Allergy: no hives Musculoskeletal: no extremity pain or swelling Neurological: no numbness/tingling, no weakness MEDICATIONS: I agree with the patient medications as charted by the RN. ALLERGIES: I agree with the allergies as charted by the RN. PAST MEDICAL HISTORY/PAST SURGICAL HISTORY: Reviewed and agree as charted by RN. SOCIAL HISTORY: Reviewed and agree as charted by RN. FAMILY HISTORY: No significant familial comorbid conditions directly related to patient complaint EXAM: Reviewed vital signs as charted by RN. CONSTITUTIONAL: Alert and oriented and responds appropriately to questions. Well-appearing; well-nourished HEAD: Normocephalic; atraumatic EYES: PERRL; Conjunctivae clear, sclerae non-icteric ENT: normal nose; no rhinorrhea; moist mucous membranes; pharynx without lesions noted, no uvula edema or deviation, no tonsillar hypertrophy, phonation normal NECK: Supple without meningismus; non-tender; no cervical lymphadenopathy, no masses CARD: RRR; no murmurs, no clicks, no rubs, no gallops; symmetric distal pulses RESP: Normal chest excursion without splinting or tachypnea; breath sounds clear and equal bilaterally; no wheezes, no rhonchi, no rales, pulse oximetry 97% on room air not hypoxic ABD/GI: Normal bowel sounds; non-distended; soft, no reproducible pain on palpation of the right lower quadrant right flank region, no rebound, no guarding; no palpable organomegaly or masses. BACK: The back appears normal and is non-tender to palpation, there is mild right CVA tenderness EXT: Normal ROM in all joints; non-tender to palpation; no cyanosis, no effusions, no edema SKIN: Normal color for age and race; warm; dry; good turgor; no acute lesions noted NEURO: Moves all extremities equally; Motor and sensory function intact PSYCH: The patient's mood and manner are appropriate. Grooming and personal hygiene are appropriate. MDM: 43-year-old female presenting to the emergency department with sudden onset of right flank pain with vomiting today. Pain is not reproducible I suspect a kidney stone. Initial screening labs placed in triage, will give Toradol for pa in, plan for renal colic CT given no prior history of stones. Patient states that she does go to the methadone clinic, states she threw up her dose of medication this morning, states she did take Zofran at home without resolution of the vomiting. Patient has her blood pressure medications and methadone to take if her nausea can be controlled. Will hold narcotics at this time. Patient states that she has been on hydrocodone and oxycodone in the past without difficulty is only allergic to Tylenol 3 TRAVEL OUTSIDE OF THE [place] IN LAST 30 DAYS: No - Related Data Allergies/Adverse Reactions: morphine [Morphine] Allergy (Intermediate, Verified 10/19/19 11:07) Hives codeine [Codeine] Allergy (Mild, Verified 10/19/19 11:07) Hives prednisone [Prednisone] Adverse Reaction (Intermediate, Verified 10/19/19 11:07) Sulfa (Sulfonamide Antibiotics) Adverse Reaction (Intermediate, Verified 10/19/19 11:07) GI upset Home Medications: Methadone. Lisinopril. Hydrochlorothiazide Past Medical History - General Information source: Patient - Social History Smoking Status: Former Smoker Frequency of alcohol use: None Drug Abuse: None Family History: Reviewed & Not Pertinent Patient has suicidal ideation: No Patient has homicidal ideation: No - Past Medical History Cardiac Medical History: Reports: Hx Hypertension Pulmonary Medical History: Reports: Hx Asthma, Hx Bronchitis, Hx Pneumonia Neurological Medical History: Reports: Hx Migraine Renal/ Medical History: Denies: Hx Peritoneal Dialysis Psychiatric Medical History: Reports: Hx Anxiety Past Surgical History: Reports: Hx Adenoidectomy, Hx Cholecystectomy - with ventral hernia repair, Hx Tonsillectomy - adenoids - Immunizations Immunizations up to date: Yes Hx Diphtheria, Pertussis, Tetanus Vaccination: Yes Physical Exam - Vital signs Vitals: Temp Pulse Resp BP Pulse Ox 98.9 F 111 H 22 H 186/102 H 94 11/06/19 10:58 11/06/19 10:58 11/06/19 10:58 11/06/19 10:58 11/06/19 10:58 Course - Re-evaluation Re-evalutation: 11/06/19 13:17 Patient is more comfortable at this time. I discussed the evaluation results with her. She has a small kidney stone at the UVJ on the right side. Has multiple other stones in the kidney. Patient states that she can be prescribed other pain medications other than her methadone she takes 140 mg of methadone daily. She states she is not under contract. Will write patient a very short course of pain medication with instruction to follow-up with urology 11/06/19 13:18 Patient urinalysis appears to be a dirty specimen with significant squamous cells I will add a urine culture. Do not believe patient has an infected stone at this time. She is afebrile. Nursing will check vital signs again prior to discharge and notify me of any abnormalities - Vital Signs Vital signs: Temp Pulse Resp BP Pulse Ox 98.9 F 111 H 22 H 186/102 H 94 11/06/19 10:58 11/06/19 10:58 11/06/19 10:58 11/06/19 10:58 11/06/19 10:58 - Laboratory Result Diagrams: 11/06/19 11:40 11/06/19 11:40 Laboratory results interpreted by me: 11/06/19 11/06/19 11:08 11:40 Sodium 135.5 L Chloride 94 L Carbon Dioxide 31 H BUN 24 H Glucose 128 H Total Protein 8.5 H Urine Protein 30 H Urine Blood MODERATE H Urine Urobilinogen 4.0 H Ur Leukocyte Esterase SMALL H Discharge - Discharge Clinical Impression: Kidney stone on right side Condition: Stable Disposition: HOME, SELF-CARE Additional Instructions: 1. return to the ED for any fever, back pain or worsening condition 2. hydrate well at home to flush the system. 3. Percocet for pain, no driving if taking Percocet for pain 4. follow up with Urology for further evaluation and treatment 5. strain urine and bring any stone retrieved to Urology or PCP for testing Prescriptions: Tamsulosin HCl [Flomax 0.4 mg Cap.sr] 0.4 mg PO DAILY #7 cap.sr.24h Oxycodone HCl/Acetaminophen [Percocet 5-325 mg Tablet] 1 tab PO Q4H PRN #15 tab PRN Reason: Ondansetron [Zofran Odt 4 mg Tablet] 1 - 2 tab PO Q4H PRN #15 tab.rapdis PRN Reason: For Nausea/Vomiting Referrals: KAILA MARTELL MD [NO LOCAL MD] - Follow up as needed SEUN STONE MD [NO LOCAL MD] - Follow up as needed
[2019-11-06 11:40] LABS: APPEARANCE,URINE CLOUDY; BILIRUBIN,URINE NEGATIVE (NEGATIVE); COLOR,URINE AMBER; GLUCOSE, URINE NEGATIVE (NEGATIVE); KETONES,URINE NEGATIVE (NEGATIVE); LEUKOCYTE ESTERASE,URINE SMALL (NEGATIVE); NITRITE,URINE NEGATIVE (NEGATIVE); PROTEIN,URINE 30 mg/dL (NEGATIVE); URINE SPECIFIC GRAVITY 1.026
[2019-11-06 11:59] LABS: ABSOLUTE EOSINOPHILS # (AUTO) 0.1 10^3/uL (0.0-0.6); ABSOLUTE LYMPHOCYTES (AUTO) 2.9 10^3/uL (0.5-4.7); ABSOLUTE MONOCYTES (AUTO) 0.5 10^3/uL (0.1-1.4); ABSOLUTE NEUT (AUTO) 5.7 10^3/uL (1.7-8.2); BASOPHILS % (AUTO) 0.4 % (0-2); EOSINOPHILS % (AUTO) 0.9 % (0-6); HEMATOCRIT 42.1 % (36.0-47.0); HEMOGLOBIN 14.5 g/dL (12.0-15.5); LYMPHOCYTES % (AUTO) 30.9 % (13-45); MEAN CORPUSCULAR HEMOGLOBIN 30.5 pg (27.0-33.4); MEAN CORPUSCULAR HGB CONC 34.3 g/dL (32.0-36.0); MEAN CORPUSCULAR VOLUME 89 fl (80-97); MONOCYTES % (AUTO) 5.8 % (3-13); PLATELET COUNT 230 10^3/uL (150-450); RED BLOOD COUNT 4.74 10^6/uL (3.72-5.28); RED CELL DISTRIBUTION WIDTH 13.4 % (11.5-14.0); TOTAL CELLS COUNTED % (AUTO) 100 %; WHITE BLOOD COUNT 9.2 10^3/uL (4.0-10.5)
[2019-11-06 12:14] LABS: ALBUMIN 4.7 g/dL (3.5-5.0); ALKALINE PHOSPHATASE 99 U/L (38-126); ANION GAP 11 (5-19); ASPARTATE AMINO TRANSFERASE 25 U/L (14-36); BILIRUBIN,DIRECT 0.4 mg/dL (0.0-0.4); BILIRUBIN,TOTAL 0.6 mg/dL (0.2-1.3); BLOOD UREA NITROGEN 24 mg/dL (7-20); CALCIUM 9.7 mg/dL (8.4-10.2); CARBON DIOXIDE 31 mmol/L (22-30); CHLORIDE 94 mmol/L (98-107); GLUCOSE 128 mg/dL (75-110); POTASSIUM 4.1 mmol/L (3.6-5.0); TOTAL PROTEIN 8.5 g/dL (6.3-8.2)
--- NOTE | 2019-11-06 12:53 | RADIOLOGY REPORT (SQ) ---
EXAM DESCRIPTION: CT ABD/PELVIS NO ORAL OR IV COMPLETED DATE/TIME: 11/06/2019 12:40 pm REASON FOR STUDY: right flank pain COMPARISON: None. TECHNIQUE: CT scan of the abdomen and pelvis performed without intravenous or oral contrast. Images reviewed with lung, soft tissue, and bone windows. Reconstructed coronal and sagittal MPR images revi ewed. All images stored on PACS. All CT scanners at this facility use dose modulation, iterative reconstruction, and/or weight based d osing when appropriate to reduce radiation dose to as low as reasonably achievable (ALARA). [facility]: Dose Right [facility]: CareDose [facility]: Dose Right [facility]: Teradose 4D [facility]: [employer] RADIATION DOSE: mGy. LIMITATIONS: None. FINDINGS: LOWER CHEST: No significant findings. No nodules or infiltrates. NON-CONTRASTED LIVER, SPLEEN, ADRENALS: Evaluation limited by lack of IV contrast. No identified sign ificant masses. PANCREAS: No masses. No peripancreatic inflammatory changes. GALLBLADDER: Surgically absent. RIGHT KIDNEY AND URETER: No suspicious masses. Assessment limited by lack of IV contrast. There is a 2.3 mm right UVJ stone. There are several small right renal stones as well is a 6.4 mm nonobstruct ing stone. There is is mild right-sided hydronephrosis and hydroureter secondary to the UVJ stone. LEFT KIDNEY AND URETER: No suspicious masses. Assessment limited by lack of IV contrast. No signifi cant calcifications. No hydronephrosis or hydroureter. AORTA AND RETROPERITONEUM: No aneurysm. No retroperitoneal masses or adenopathy. BOWEL AND PERITONEAL CAVITY: No obvious masses or inflammatory changes. No free fluid. APPENDIX: Normal. PELVIS, BLADDER, AND ABDOMINAL WALL:Small right adnexal lesion consistent with ovarian cyst. Umbilic al hernia containing omental fat and colon. No obstruction. BONES: No significant findings. OTHER: No other significant finding. IMPRESSION: 1. 2.3 mm right UVJ stone with mild right-sided hydronephrosis and hydroureter. Additi onal nonobstructing right renal calculi. The largest measures 6.4 mm. Hounsfield units measure appr oximately 400. 2. Large umbilical hernia containing omental fat and colon. No evidence of mechanical obstruction. COMMENT: Quality ID # [id number]: Final reports with documentation of one or more dose reduction techniques (e.g., Automated exposure control, adjustment of the mA and/or kV according to patient size, use of iterative reconstruction technique) TECHNICAL DOCUMENTATION: JOB ID: [id number] 2010 [employer]- All Rights Reserved Reading location - IP/workstation name: [email or web address]
[2019-11-06] MEDS ORDERED: TAMSULOSIN HCL 0.4 MG CAP.SR.24H PO ONE (13:09)
[2019-11-06] MEDS ORDERED: OXYCODONE-ACETAMINOPHEN 5-325 MG TABLET PO ONE (13:46)
[2019-11-06 14:09] VITALS: BP 137/79
== END 2019-11-06 14:08 | disposition home or self-care (01) ==
LOC: ER 10:53
DX: N20.0 Calculus of kidney (principal); R10.9 Unspecified abdominal pain; M54.9 Dorsalgia, unspecified; R10.31 Right lower quadrant pain; R11.2 Nausea with vomiting, unspecified; Z88.2 Allergy status to sulfonamides; Z88.8 Allergy status to other drugs, medicaments and biological substances; Z87.891 Personal history of nicotine dependence; I10 Essential (primary) hypertension; J45.909 Unspecified asthma, uncomplicated
CPT/HCPCS: 99284; 96374; 96375; 36415; 87086; 84703; 85025; 87088; 80053; 81001; 74176; J1885; J2405

== ENCOUNTER 2019-11-08 13:50 | Emergency (ER) | payer SELFPAY ==
[2019-11-08] MEDS ORDERED: ONDANSETRON HCL INJ/PF 4 MG/2 ML SDV IV ONE (14:02)
[2019-11-08] MEDS ORDERED: NORMAL SALINE 1000 ML 1,000 ML IV ONE (14:02)
[2019-11-08] MEDS ORDERED: ACETAMINOPHEN 325 MG TABLET PO ONE (14:07)
--- NOTE | 2019-11-08 14:07 | ER Document Report ---
ED GI/ <LY BRIGGS - Last Filed: 11/08/19 15:18> - General Mode of Arrival: Ambulatory Information source: Patient TRAVEL OUTSIDE OF THE [place] IN LAST 30 DAYS: No - HPI Patient complains to provider of: Other - Anxiety, palpitations, right flank pain. No: Vomiting Onset: Yesterday Timing/Duration: Better Severity in ED: Moderate Pain Level: Denies Location: Right flank Vaginal bleeding (Compared to normal period): None Associated symptoms: Loss of appetite, Nausea. denies: Chest pain, Dysuria, Fever, Urinary hesitancy, Urinary frequency, Urinary retention, Urinary urgency, Vaginal discharge, Vomiting Exacerbated by: Denies Relieved by: Denies Similar symptoms previously: No Recently seen / treated by doctor: Yes <CIRA NUR - Last Filed: 11/08/19 17:18> - General Chief Complaint: Back Pain Stated Complaint: FLANK PAIN/VOMITING Time Seen by Provider: 11/08/19 13:53 Primary Care Provider: [facility] [Provider Group] - Follow up as needed [facility] [Provider Group] - Follow up tomorrow [facility] [Outside] - Follow up as needed Notes: Patient presents complaining of continued flank pain and palpitations. Patient also reports anxiety and increased stress due to recent in the family. Patient states that she had palpitations yesterday and these seem to be better at this time. Patient states she did have low back pain that is better at this time as well. Patient is currently being treated for a kidney stone. Patient states that her grandson was killed by a vehicle 2 days ago and she has had a lot of stress due to this. Patient does complain of nausea. No cough or cold symptoms. Patient was uncertain if she may have had a fever at home. (CIRA NUR) - Related Data Allergies/Adverse Reactions: morphine [Morphine] Allergy (Intermediate, Verified 11/08/19 13:53) Hives codeine [Codeine] Allergy (Mild, Verified 11/08/19 13:53) Hives prednisone [Prednisone] Adverse Reaction (Intermediate, Verified 11/08/19 13:53) Sulfa (Sulfonamide Antibiotics) Adverse Reaction (Intermediate, Verified 11/08/19 13:53) GI upset Past Medical History - General Information source: Patient - Social History Smoking Status: Former Smoker Chew tobacco use (# tins/day): No Drug Abuse: None Lives with: Family Family History: Reviewed & Not Pertinent Patient has suicidal ideation: No Patient has homicidal ideation: No - Past Medical History Cardiac Medical History: Reports: Hx Hypertension Pulmonary Medical History: Reports: Hx Asthma, Hx Bronchitis, Hx Pneumonia Neurological Medical History: Reports: Hx Migraine Renal/ Medical History: Denies: Hx Peritoneal Dialysis Psychiatric Medical History: Reports: Hx Anxiety Past Surgical History: Reports: Hx Adenoidectomy, Hx Cholecystectomy - with ventral hernia repair, Hx Tonsillectomy - adenoids - Immunizations Immunizations up to date: Yes Hx Diphtheria, Pertussis, Tetanus Vaccination: Yes <CIRA NUR - Last Filed: 11/08/19 17:18> Review of Systems - Review of Systems Constitutional: No symptoms reported EENT: No symptoms reported Cardiovascular: Palpitations. denies: Chest pain, Lightheaded Respiratory: No symptoms reported. denies: Cough, Short of breath Gastrointestinal: Nausea. denies: Abdominal pain, Vomiting Genitourinary: Flank pain. denies: Dysuria Female Genitourinary: No symptoms reported Musculoskeletal: Back pain Skin: No symptoms reported Hematologic/Lymphatic: No symptoms reported Neurological/Psychological: Anxiety <CIRA NUR - Last Filed: 11/08/19 17:18> Physical Exam - General General appearance: Appears well, Alert In distress: None - HEENT Head: Normocephalic, Atraumatic Eyes: Normal Nasal: Normal Mouth/Lips: Normal Pharynx: Normal Neck: Normal, Supple. No: Lymphadenopathy - Respiratory Respiratory status: No respiratory distress Chest status: Nontender Breath sounds: Normal. No: Rales, Rhonchi, Stridor, Wheezing Chest palpation: Normal - Cardiovascular Rhythm: Tachycardia Heart sounds: S1 appreciated, S2 appreciated Murmur: No - Abdominal Inspection: Obese Tenderness: Nontender - Back Back: Normal, Nontender. No: CVA tenderness - Extremities General upper extremity: Normal inspection, Normal ROM General lower extremity: Normal inspection, Normal ROM - Neurological Neuro grossly intact: Yes Cognition: Normal Licha Coma Scale Eye Opening: Spontaneous Licha Coma Scale Verbal: Oriented Licha Coma Scale Motor: Obeys Commands Stephenson Coma Scale Total: 15 - Psychological Associated symptoms: Anxious, Tearful - Skin Skin Temperature: Warm Skin Moisture: Dry Skin Color: Normal <CIRA NUR - Last Filed: 11/08/19 17:18> - Vital signs Vitals: Temp Pulse Resp BP Pulse Ox 100 F 116 H 18 154/88 H 96 11/08/19 13:58 11/08/19 13:58 11/08/19 13:58 11/08/19 13:58 11/08/19 13:58 Course - Laboratory Result Diagrams: 11/08/19 14:49 11/08/19 14:49 <LY BRIGGS - Last Filed: 11/08/19 15:18> - Laboratory Result Diagrams: 11/08/19 14:49 11/08/19 14:49 <CIRA NUR - Last Filed: 11/08/19 17:18> - Re-evaluation Re-evalutation: 11/08/19 15:43 Patient's previous urinalysis had been cultured and had 10-20,000 gram-positive cocci, patient was given a gram of Rocephin pending her urinalysis results. Patient without any UTI at this time with no leukocytosis. Will reculture urine today. Patient presently denies any flank pain. Mental health team did evaluate patient, patient does not meet IVC criteria as she denies any SI or HI. She will be given outpatient resources to help her process grief due to recent loss. 11/08/19 16:19 Discussed results with patient. Patient without any right flank or abdominal tenderness. Patient has left thoracic back pain. Patient has a history of chronic musculoskeletal back pain and suspects the same today. Patient states that she just wanted to be certain she was not having any complication because of the recent diagnosis of kidney stones. Patient encouraged to follow-up with urologist for recheck. We will reculture her urine and start her on a short course of antibiotics. Patient with improved urinalysis today as compared to her prior ED visit. Discussed worsening signs or symptoms that she should return immediately for. Patient verbalized understanding and is agreeable with discharge plan of care. (CIRA NUR) - Vital Signs Vital signs: Temp Pulse Resp BP Pulse Ox 100 F 116 H 10 L 122/81 92 11/08/19 13:58 11/08/19 13:58 11/08/19 16:35 11/08/19 16:35 11/08/19 16:35 - Laboratory Laboratory results interpreted by me: 11/08/19 11/08/19 11/08/19 14:49 14:49 14:49 Absolute Neuts (auto) 8.5 H Seg Neutrophils % 80.6 H Sodium 134.6 L Chloride 93 L Carbon Dioxide 31 H Glucose 158 H Urine Blood SMALL H Urine Urobilinogen 4.0 H Ur Leukocyte Esterase TRACE H 11/08/19 11/08/19 11/08/19 14:49 14:49 14:49 Absolute Neuts (auto) 8.5 H Seg Neutrophils % 80.6 H Sodium 134.6 L Chloride 93 L Carbon Dioxide 31 H Glucose 158 H Urine Blood SMALL H Urine Urobilinogen 4.0 H Ur Leukocyte Esterase TRACE H 11/08/19 16:19 Labs- Entire Visit 11/08/19 11/08/19 11/08/19 14:49 14:49 14:49 WBC 10.5 RBC 4.74 Hgb 14.7 Hct 41.9 MCV 89 MCH 31.0 MCHC 35.1 RDW 13.6 Plt Count 211 Lymph % (Auto) 13.7 [place] % (Auto) 5.3 Eos % (Auto) 0.0 Baso % (Auto) 0.4 Absolute Neuts (auto) 8.5 H Absolute Lymphs (auto) 1.4 Absolute Monos (auto) 0.6 Absolute Eos (auto) 0.0 Absolute Basos (auto) 0.0 Seg Neutrophils % 80.6 H Sodium 134.6 L Potassium 4.0 Chloride 93 L Carbon Dioxide 31 H Anion Gap 11 BUN 18 Creatinine 0.65 Est GFR ( Amer) > 60 Est GFR (MDRD) Non-Af > 60 Glucose 158 H Calcium 9.7 Magnesium 1.8 Total Bilirubin 0.8 Direct Bilirubin 0.1 Neonat Total Bilirubin Not Reportable Neonat Direct Bilirubin Not Reportable Neonat Indirect Bili Not Reportable AST 24 ALT 23 Alkaline Phosphatase 106 Total Protein 8.2 Albumin 4.7 Lipase 69.6 Urine Color YELLOW Urine Appearance CLOUDY Urine pH 7.0 Ur Specific [place] 1.023 Urine Protein NEGATIVE Urine Glucose (UA) NEGATIVE Urine Ketones NEGATIVE Urine Blood SMALL H Urine Nitrite NEGATIVE Urine Bilirubin NEGATIVE Urine Urobilinogen 4.0 H Ur Leukocyte Esterase TRACE H Urine WBC (Auto) 5 Urine RBC (Auto) 5 U Hyaline Cast (Auto) 1 Squamous Epi Cells Auto 35 Urine Mucus (Auto) RARE Urine Ascorbic Acid NEGATIVE (CIRA NUR) Discharge <LY BRIGGS - Last Filed: 11/08/19 15:18> <CIRA NUR - Last Filed: 11/08/19 17:18> - Discharge Clinical Impression: Kidney stone on right side, Nausea, Grief at loss of child Chronic back pain Qualifiers: Back pain location: back pain in unspecified location Back pain laterality: unspecified Qualified Code(s): M54.9 - Dorsalgia, unspecified Condition: Stable Disposition: HOME, SELF-CARE Instructions: Cephalexin ([facility]), Kidney Stone ([facility]), Nausea or Vomiting, Non specific ([facility]) Additional Instructions: You have been evaluated by both medical and behavioral health teams for anxiety and have been deemed appropriate for discharge. While in the emergency department you received the following services: Medical screening and assessment, nursing services, dietary services, pharmacological services, one-on-one counseling and/or psychotherapy, and environmental services. You are encouraged to reach out to [facility], if needed; their after hours emergency number is [phone]. The contact information for mobile cri sis has been provided, if needed. Working Your Way through Grief and Loss Acknowledge your feelings of sadness, anger, regret, and guilt. Theres no way around it. Coping with grief is tough, but if you dont face the painful emotions, they are bound to come out, and they can take over your life. Dont let anybody tell you how to grieve, or that the process should be squeezed into a specific timeframe. Although there are some commonalities, your experience is yours alone, and you must work through the process in your own way. Here are some ideas that may help: Take care of yourself. Grief is exhausting, so be sure to get enough rest. Eat a healthy diet without a lot of carbs, sugar, or junk food. Reach out to friends and family, even when you dont feel like it. Meet a friend for a movie or a cup of coffee. Seek out people who understand, as spending time with folks who dont get it is likely to be counterproductive. Avoid triggers that may lead to relapse. Dont spend time with people who make you uncomfortable. Avoid places and things that expose you to drugs and alcohol. Be aware of special dates, especially during the first couple of years. A nniversaries, birthdays and holidays are especially difficult when youve given up drugs or alcohol, or if youve lost a loved one. Dont isolate yourself; plan to do something special with family and friends or schedule a counseling session. Record your feelings in a journal. Read books that will inspire you and provide greater insight on how other people cope with grief and loss. Get moving. If its difficult to get motivated, hit the gym or ask a friend to take a walk with you. Turn on your favorite music and dance, as dancing will help you express anger or sadness. Try to give back to others. By helping others, you will feel better and more positive about life. [place] or meditate daily, in a way that works best for you. Stick to your regular treatment program, even when you dont feel like it. Attend Twelve-Step meetings or other forms of group treatment. Talk to your therapist. Dont hesitate to ask for help if you need it. While its true that there is no set time frame for grief, its important to seek treatment if youre having trouble accepting the loss. Most people tend to feel better after six to 12 months. Dont hesitate to reach out if your feelings of grief are too much to handle, or if they arent resolving. Anxiety The physician feels that some of your health problems are being caused by anxiety. Anxiety affects your health in many ways. Anxiety alone can cause palpitations, sweats, chest pains, abdominal pains, shortness of breath, and headaches. It contributes to ulcer disease, high blood pressure, irritable bowel syndrome, and has been shown to cause flare-ups of many other diseases. Anxiety is not a simple disorder to treat. If the anxiety is due to recent life stresses, you may simply need time to "work through" the changes. If the anxiety is due to an underlying unhappiness with yourself or due to psychiatric disturbance, professional help will be needed. Your physician can refer you for further help if needed. Anti-anxiety medication is occasionally given if the stress is acute or if you are having trouble sleeping. Chronic or frequent use of these medications is not a good idea because the body becomes reliant on it, preventing you from dealing with life's normal stresses. AT ANY TIME, IF YOUR SYMPTOMS CHANGE SIGNIFICANTLY OR WORSEN OR YOU DEVELOP NEW SYMPTOMS, RETURN TO THE EMERGENCY DEPARTMENT IMMEDIATELY FOR RE-EVALUATION. Return immediately for any new or worsening symptoms Followup with your primary care provider, call tomorrow to make a followup appointment Follow-up with urologist for recheck, call tomorrow for an appointment Prescriptions: Cephalexin Monohydrate [Keflex 500 mg Capsule] 500 mg PO BID 5 Days #10 capsule Referrals: [facility] [Outside] - Follow up as needed [facility] [Provider Group] - Follow up as needed [facility] [Provider Group] - Follow up tomorrow
[2019-11-08] MEDS ORDERED: CEFTRIAXONE 1 GM/D5W RTU 1 GM/50 ML RTUPB IV ONE (14:26)
[2019-11-08 15:07] LABS: ABSOLUTE LYMPHOCYTES (AUTO) 1.4 10^3/uL (0.5-4.7); ABSOLUTE MONOCYTES (AUTO) 0.6 10^3/uL (0.1-1.4); ABSOLUTE NEUT (AUTO) 8.5 10^3/uL (1.7-8.2); BASOPHILS % (AUTO) 0.4 % (0-2); HEMATOCRIT 41.9 % (36.0-47.0); HEMOGLOBIN 14.7 g/dL (12.0-15.5); LYMPHOCYTES % (AUTO) 13.7 % (13-45); MEAN CORPUSCULAR HGB CONC 35.1 g/dL (32.0-36.0); MEAN CORPUSCULAR VOLUME 89 fl (80-97); MONOCYTES % (AUTO) 5.3 % (3-13); PLATELET COUNT 211 10^3/uL (150-450); RED BLOOD COUNT 4.74 10^6/uL (3.72-5.28); RED CELL DISTRIBUTION WIDTH 13.6 % (11.5-14.0); SEGMENTED NEUTROPHILS % (AUTO) 80.6 % (42-78); TOTAL CELLS COUNTED % (AUTO) 100 %; WHITE BLOOD COUNT 10.5 10^3/uL (4.0-10.5)
--- NOTE | 2019-11-08 15:18 | PSYCHOLOGICAL NOTE ---
Psych Note - Psych Note Date seen by psych provider: 11/08/19 Time seen by psych provider: 14:15 Psych Note: Patient is a 43-year-old female who presents to ED via POV for continued concerns with kidney stones. Behavioral health consult was placed because patient's 3 year old grandson was killed 2 days ago. Patient states, "I'm not here for that." Patient elaborated on her recent ED visits related to kidney stones. Patient states her pain and nausea related to the kidney stone has increased. Patient reports she "knows the difference between stress and being sick." Patient replied, "God no" when asked about SI/HI. Patient thanked clinician for checking in, but declines linkage to grief support groups, linkage to an outpatient therapist, or a maintenance medication to manage anxiety. Patient reports she does not want to take anything to jeopardize her treatment. Patient is engaged in OTP at [facility], in which she has earned 2 weeks of take homes. Patient states she could be a phase 7, but she cannot afford to pay for a month of take homes. Patient denied cravings or urge to use. Patient stated that before recovery she would have used, but not "now." Patient states she was trying to make it to [place] to be with her daughter, but thought she is medically unable to travel. Provided patient with psychoeducation regarding grief and anxiety/depression, especially relapse after a major trauma. Encouraged patient to reach out to [facility], if needed. Clinician provided positive reinforcement and encouragement related to her recovery efforts. Clinician explained to patient that medication to manage anxiety could be prescribed that do not habit forming/addictive qualities, and therefore would not jeopardize her recovery. Patient is alert and oriented to person, place, time and circumstance. Mood is normal with congruent affect, however was tearful as she discussed the circumstances of her grandson's . Patient denies suicidal and homicidal ideations. Delusions are absent and behavior is congruent with an intact reality based presentation (i.e., organized and linear through processes). There is no observed behavior that suggests patient is responding to internal stimuli. Patient is able to engage in organized, rational thought processes. Patient is able to express needs and wants in a logical manner. Patient denies current auditory and visual hallucinations. Eye contact is appropriate. Conversational speech is within normal rate, tone, and prosody. Intellectual ability appears to be within average range. Attention and concentration are good. Insight, judgment and impulse control are currently good. Impression/Plan: Patient is cleared from acute psychiatric services. Patient presents to ED for continued concerns with kidney stones. Behavioral health consult was placed after patient reported increase in anxiety. Patient is experiencing increased physical stress due to do kidney stones. Patient is also experiencing emotional distress related to the recent of her 3 year old grandson. Patient was offered linkage to grief support groups, linkage to an outpatient therapist, or a maintenance medication to manage anxiety; however, patient declined those resources. Patient denies she is experiencing a mental health crisis or concern. Patient states her ED visit is for medical concerns. Patient denies SI/HI. Patient has access to therapy services through [facility], and was provided with their after hours emergency line. Dr. Goodwin was consulted on the care and management of this patient; attending physician is in agreement with recommendations and disposition.
[2019-11-08 15:28] LABS: ALBUMIN 4.7 g/dL (3.5-5.0); ALKALINE PHOSPHATASE 106 U/L (38-126); ANION GAP 11 (5-19); ASPARTATE AMINO TRANSFERASE 24 U/L (14-36); BILIRUBIN,DIRECT 0.1 mg/dL (0.0-0.4); BILIRUBIN,TOTAL 0.8 mg/dL (0.2-1.3); BLOOD UREA NITROGEN 18 mg/dL (7-20); CALCIUM 9.7 mg/dL (8.4-10.2); CARBON DIOXIDE 31 mmol/L (22-30); CHLORIDE 93 mmol/L (98-107); GLUCOSE 158 mg/dL (75-110); TOTAL PROTEIN 8.2 g/dL (6.3-8.2)
[2019-11-08 15:36] LABS: APPEARANCE,URINE CLOUDY; BILIRUBIN,URINE NEGATIVE (NEGATIVE); COLOR,URINE YELLOW; GLUCOSE, URINE NEGATIVE (NEGATIVE); KETONES,URINE NEGATIVE (NEGATIVE); LEUKOCYTE ESTERASE,URINE TRACE (NEGATIVE); NITRITE,URINE NEGATIVE (NEGATIVE); PROTEIN,URINE NEGATIVE (NEGATIVE); URINE SPECIFIC GRAVITY 1.023
[2019-11-08 17:18] VITALS: BP 122/81
--- NOTE | 2019-11-08 18:53 | EKG REPORT ---
SEVERITY:- ABNORMAL ECG - SINUS TACHYCARDIA NONSPECIFIC T ABNORMALITIES, ANTERIOR LEADS BORDERLINE PROLONGED QT INTERVAL : Confirmed by: Marty Braxton MD 08-Nov-2019 18:52:38
== END 2019-11-08 16:50 | disposition home or self-care (01) ==
LOC: ER 13:50
DX: N20.0 Calculus of kidney (principal); R11.0 Nausea; F43.21 Adjustment disorder with depressed mood; Z63.4 Disappearance and death of family member; R00.2 Palpitations; F41.9 Anxiety disorder, unspecified; R63.0 Anorexia; M54.5 Low back pain; R00.0 Tachycardia, unspecified; J45.909 Unspecified asthma, uncomplicated; Z88.6 Allergy status to analgesic agent; Z88.5 Allergy status to narcotic agent; Z87.891 Personal history of nicotine dependence
CPT/HCPCS: 93005; 99285; 96375; 96365; 36415; 87086; 83690; 83735; 85025; 87088; 80053; 81001; 93010; J2405; J7030; J0696

== ENCOUNTER 2020-04-20 13:51 | Emergency (ER) | payer SELFPAY ==
[2020-04-20] MEDS ORDERED: KETOROLAC TROMETHAMINE INJ/PF 30 MG/1 ML SDV IV ONE (14:11)
[2020-04-20] MEDS ORDERED: NORMAL SALINE 1000 ML 1,000 ML IV ONE (14:12)
--- NOTE | 2020-04-20 14:13 | ER Document Report ---
ED Medical Screen (RME) - General Chief Complaint: Back Pain Stated Complaint: BACK PAIN Time Seen by Provider: 04/20/20 14:06 Mode of Arrival: Ambulatory Information source: Patient Notes: 44-year-old female patient presents the emergency department chief complaint of right flank pain that began this morning. She denies any dysuria, urinary frequency, obvious blood in her urine, nausea, vomiting or radiation of the pain. She does report a history of kidney stones, states this feels similar. She states she last had a CAT scan back in October. She has not had a fever or chills. Right CVA tenderness. I have greeted and performed a rapid initial assessment of this patient. A comprehensive ED assessment and evaluation of the patient, analysis of test results and completion of the medical decision making process will be conducted by additional ED providers. I have specifically instructed the patient or family members with the patient to immediately return to any nursing staff sh ould anything change in the patient's condition or with their chief complaint. TRAVEL OUTSIDE OF THE [place] IN LAST 30 DAYS: No - Related Data Allergies/Adverse Reactions: morphine [Morphine] Allergy (Intermediate, Verified 04/20/20 14:01) Hives codeine [Codeine] Allergy (Mild, Verified 04/20/20 14:01) Hives prednisone [Prednisone] Adverse Reaction (Intermediate, Verified 04/20/20 14:01) Sulfa (Sulfonamide Antibiotics) Adverse Reaction (Intermediate, Verified 04/20/20 14:01) GI upset Past Medical History - Social History Frequency of alcohol use: None Drug Abuse: None - Past Medical History Cardiac Medical History: Reports: Hx Hypertension Pulmonary Medical History: Reports: Hx Asthma, Hx Bronchitis, Hx Pneumonia Neurological Medical History: Reports: Hx Migraine Renal/ Medical History: Denies: Hx Peritoneal Dialysis Psychiatric Medical History: Reports: Hx Anxiety Past Surgical History: Reports: Hx Adenoidectomy, Hx Cholecystectomy - with ventral hernia repair, Hx Tonsillectomy - adenoids - Immunizations Immunizations up to date: Yes Hx Diphtheria, Pertussis, Tetanus Vaccination: Yes Physical Exam - Vital signs Vitals: Temp Pulse Resp BP Pulse Ox 98.5 F 92 18 151/89 H 93 04/20/20 13:58 04/20/20 13:58 04/20/20 13:58 04/20/20 13:58 04/20/20 13:58 Course - Vital Signs Vital signs: Temp Pulse Resp BP Pulse Ox 98.5 F 92 18 151/89 H 93 04/20/20 13:58 04/20/20 13:58 04/20/20 13:58 04/20/20 13:58 04/20/20 13:58
[2020-04-20] MEDS ORDERED: KETOROLAC TROMETHAMINE 60 MG/2 ML SDV IM ONE (14:30)
[2020-04-20 15:05] LABS: ABSOLUTE BASOPHILS # (AUTO) 0.1 10^3/uL (0.0-0.2); ABSOLUTE EOSINOPHILS # (AUTO) 0.1 10^3/uL (0.0-0.6); ABSOLUTE LYMPHOCYTES (AUTO) 3.4 10^3/uL (0.5-4.7); ABSOLUTE MONOCYTES (AUTO) 0.6 10^3/uL (0.1-1.4); ABSOLUTE NEUT (AUTO) 7.7 10^3/uL (1.7-8.2); BASOPHILS % (AUTO) 0.9 % (0-2); EOSINOPHILS % (AUTO) 0.9 % (0-6); HEMATOCRIT 39.9 % (36.0-47.0); HEMOGLOBIN 13.4 g/dL (12.0-15.5); LYMPHOCYTES % (AUTO) 28.5 % (13-45); MEAN CORPUSCULAR HEMOGLOBIN 30.6 pg (27.0-33.4); MEAN CORPUSCULAR HGB CONC 33.6 g/dL (32.0-36.0); MEAN CORPUSCULAR VOLUME 91 fl (80-97); MONOCYTES % (AUTO) 4.8 % (3-13); RED BLOOD COUNT 4.37 10^6/uL (3.72-5.28); RED CELL DISTRIBUTION WIDTH 13.4 % (11.5-14.0); SEGMENTED NEUTROPHILS % (AUTO) 64.9 % (42-78); TOTAL CELLS COUNTED % (AUTO) 100 %; WHITE BLOOD COUNT 11.9 10^3/uL (4.0-10.5)
[2020-04-20 15:06] LABS: APPEARANCE,URINE SLIGHTLY-CLOUDY; BILIRUBIN,URINE NEGATIVE (NEGATIVE); COLOR,URINE YELLOW; GLUCOSE, URINE NEGATIVE (NEGATIVE); KETONES,URINE NEGATIVE (NEGATIVE); LEUKOCYTE ESTERASE,URINE TRACE (NEGATIVE); NITRITE,URINE NEGATIVE (NEGATIVE); PROTEIN,URINE 30 mg/dL (NEGATIVE); URINE SPECIFIC GRAVITY 1.029
[2020-04-20 15:21] LABS: ALBUMIN 4.6 g/dL (3.5-5.0); ALKALINE PHOSPHATASE 75 U/L (38-126); ANION GAP 11 (5-19); ASPARTATE AMINO TRANSFERASE 24 U/L (14-36); BILIRUBIN,DIRECT 0.4 mg/dL (0.0-0.4); BILIRUBIN,TOTAL 0.5 mg/dL (0.2-1.3); BLOOD UREA NITROGEN 17 mg/dL (7-20); CALCIUM 9.3 mg/dL (8.4-10.2); CARBON DIOXIDE 27 mmol/L (22-30); CHLORIDE 101 mmol/L (98-107); GLUCOSE 101 mg/dL (75-110); POTASSIUM 4.5 mmol/L (3.6-5.0); TOTAL PROTEIN 7.9 g/dL (6.3-8.2)
[2020-04-20 15:30] LABS: PLATELET COUNT 231 10^3/uL (150-450)
--- NOTE | 2020-04-20 20:01 | ER Document Report ---
ED General Pain - General Chief Complaint: Back Pain Stated Complaint: BACK PAIN Time Seen by Provider: 04/20/20 14:06 Mode of Arrival: Ambulatory Notes: ED Medical Screen (Carlos ocasio) - General Chief Complaint: Back Pain Stated Complaint: BACK PAIN Time Seen by Provider: 04/20/20 14:06 Mode of Arrival: Ambulatory Information source: Patient Notes: 44-year-old female patient presents the emergency department chief complaint of right flank pain that began this morning. She denies any dysuria, urinary frequency, obvious blood in her urine, nausea, vomiting or radiation of the pain. She does report a history of kidney stones, states this feels similar. She states she last had a CAT scan back in October. She has not had a fever or chills. MY NOTES 44-year-old female arrives with chief complaint of right CVA and right flank pain that began this morning. She denies any hematuria denies any trauma she does have history of lipomas on her back and left forearm but these are not giving her any problems. She does have a history of kidney stones and she had a scan last year per her history of retained kidney stones. Patient denies any skin rash fever chills cephalgia spider bites animal bites abuse or hip pain extremity pain nuchal rigidity . TRAVEL OUTSIDE OF THE [place] IN LAST 30 DAYS: No - HPI Onset: This morning Onset/Duration: Sudden, Persistent Quality of pain: Achy Severity: Mild Pain Level: 2 Exacerbated by: Movement - Related Data Allergies/Adverse Reactions: morphine [Morphine] Allergy (Intermediate, Verified 04/20/20 14:01) Hives codeine [Codeine] Allergy (Mild, Verified 04/20/20 14:01) Hives prednisone [Prednisone] Adverse Reaction (Intermediate, Verified 04/20/20 14:01) Sulfa (Sulfonamide Antibiotics) Adverse Reaction (Intermediate, Verified 14:01) GI upset Past Medical History - General Information source: Patient - Social History Smoking Status: Current Every Day Smoker Cigarette use (# per day): Yes Chew tobacco use (# tins/day): No Smoking Education Provided: Yes Frequency of alcohol use: None Drug Abuse: None Lives with: Family Family History: Reviewed & Not Pertinent Patient has suicidal ideation: No Patient has homicidal ideation: No - Past Medical History Cardiac Medical History: Reports: Hx Hypertension Pulmonary Medical History: Reports: Hx Asthma, Hx Bronchitis, Hx Pneumonia Neurological Medical History: Reports: Hx Migraine Renal/ Medical History: Reports: Hx Kidney Stones. Denies: Hx Peritoneal Dialysis Psychiatric Medical History: Reports: Hx Anxiety Past Surgical History: Reports: Hx Adenoidectomy, Hx Cholecystectomy - with ventral hernia repair, Hx Tonsillectomy - adenoids - Immunizations Immunizations up to date: Yes Hx Diphtheria, Pertussis, Tetanus Vaccination: Yes Review of Systems - Review of Systems Constitutional: No symptoms reported EENT: No symptoms reported Cardiovascular: No symptoms reported Respiratory: No symptoms reported Gastrointestinal: No symptoms reported Genitourinary: No symptoms reported Female Genitourinary: No symptoms reported Musculoskeletal: See HPI, Back pain Skin: No symptoms reported Hematologic/Lymphatic: No symptoms reported Neurological/Psychological: No symptoms reported Physical Exam - Vital signs Vitals: Temp Pulse Resp BP Pulse Ox 98.5 F 92 18 151/89 H 93 04/20/20 13:58 04/20/20 13:58 04/20/20 13:58 04/20/20 13:58 04/20/20 13:58 Interpretation: Hypertensive - General General appearance: Alert - HEENT Head: Normocephalic, Atraumatic Eyes: Normal Pupils: PERRL Sinus: Normal Nasal: Normal Mouth/Lips: Normal Mucous membranes: Normal Pharynx: Normal Neck: Normal - Respiratory Respiratory status: No respiratory distress Chest status: Nontender Breath sounds: Normal Chest palpation: Normal - Cardiovascular Rhythm: Regular Heart sounds: Normal auscultation Murmur: No - Abdominal Inspection: Normal Distension: No distension Bowel sounds: Normal Tenderness: Nontender Organomegaly: No organomegaly - Rectal Hemorrhoids: Other - deferred - Genitourinary Biman[place] exam: Other - deferred - Back Back: Tender, CVA tenderness - right cva pain - Extremities General upper extremity: Normal inspection General lower extremity: Normal inspection - Neurological Neuro grossly intact: Yes Cognition: Normal Orientation: AAOx4 [place] Coma Scale Eye Opening: Spontaneous [place] Coma Scale Verbal: Oriented [place] Coma Scale Motor: Obeys Commands [place] Coma Scale Total: 15 Speech: Normal Motor strength normal: LUE, RUE, LLE, RLE Sensory: Normal - Psychological Associated symptoms: Anxious - Skin Skin Temperature: Warm Skin Moisture: Dry Course - Vital Signs Vital signs: Temp Pulse Resp BP Pulse Ox 98.5 F 92 18 151/89 H 93 04/20/20 13:58 04/20/20 13:58 04/20/20 13:58 04/20/20 13:58 04/20/20 13:58 - Laboratory Result Diagrams: 04/20/20 14:39 04/20/20 14:39 Laboratory results interpreted by me: 04/20/20 04/20/20 14:39 14:39 WBC 11.9 H Urine Protein 30 H Urine Urobilinogen 4.0 H Ur Leukocyte Esterase TRACE H - Diagnostic Test Radiology reviewed: Reports reviewed Discharge - Discharge Clinical Impression: Acute right flank pain, UTI (urinary tract infection) Condition: Good Disposition: HOME, SELF-CARE Additional Instructions: Follow-up with personal doctor return to ER as needed take medicines as directed encourage fluids avoid bending twisting or lifting until seen by personal doctor. Follow-up with urologist if symptoms persist. Prescriptions: Ciprofloxacin HCl [Cipro 500 mg Tablet] 500 mg PO BID #20 tablet Chlorzoxazone [Parafon Forte Dsc 500 Mg Tablet] 500 mg PO BID PRN #15 tablet PRN Reason: Pain Scale Of 1
[2020-04-20] MEDS ORDERED: GENTAMICIN SULFATE INJ 80 MG/2 ML VIAL IM ONE (20:09)
[2020-04-20 20:53] VITALS: BP 132/86
--- NOTE | 2020-04-20 21:13 | RADIOLOGY REPORT (SQ) ---
EXAM DESCRIPTION: CT ABDOMEN PELVIS WITHOUT IV CONTRAST COMPLETED DATE/TME: 04/20/2020 20:07 CLINICAL HISTORY: 44 years, Female, right flank kidney pain COMPARISON: CT from 11/06/2019. TECHNIQUE: Study performed without IV or oral contrast. Sagittal coronal reconstruction. Images stored on PACS. All CT scanners at this facility use dose modulation, iterative reconstruction, and/or weight based dosing when appropriate to reduce radiation dose to as low as reasonably achievable (ALARA). FINDINGS: Moderate hiatal hernia. Lung bases unremarkable. Fatty liver. Cholecystectomy. Mild common bile duct dilatation unchanged and normal post surgery. Spleen, pancreas, adrenal glands, para-aortic regions are unremarkable. Aorta minimally atherosclerotic without dilatation. Kidneys without acute hydronephrosis. No definite stones. Question subtle nephrocalcinosis. Previous 4 mm nonobstructing right kidney stone is not seen anymore. Moderate-sized ventral hernia located just inferior to the umbilicus with herniation of transverse colon. No significant change since 11/06/2019. There is additional separate umbilical hernia more superiorly with herniation of fat unchanged. There is chronic increased right colonic stool similar to previous CT. There is no evidence for complete large bowel obstruction. Small bowel loops are not dilated. CT of the pelvis demonstrates a partially retroverted uterus. Significantly contracted urinary bladder without overt abnormality. No suspicious distal ureteric dilatation or stone. Bony pelvis is unremarkable. No adenopathy or free fluid. IMPRESSION: 1. No acute renal abnormality. Previous right UV junction stone and previous right nonobstructing kidney stone not seen anymore. Question very subtle nephrocalcinosis although this could be artifact 2. Moderate hiatal hernia. Fatty liver. Partially retroverted uterus. 3. Chronic ventral hernia with herniation of transverse colon. Chronic mild dilatation with increased stool in the right colon without overt large bowel obstruction and without change. Separate ventral hernia superior to the colonic herniation consistent with umbilical hernia containing moderate amount of fat
== END 2020-04-20 20:50 | disposition home or self-care (01) ==
LOC: ER 13:51
DX: N39.0 Urinary tract infection, site not specified (principal); K76.0 Fatty (change of) liver, not elsewhere classified; K44.9 Diaphragmatic hernia without obstruction or gangrene; K43.9 Ventral hernia without obstruction or gangrene; M54.9 Dorsalgia, unspecified; R10.9 Unspecified abdominal pain; F17.210 Nicotine dependence, cigarettes, uncomplicated; I10 Essential (primary) hypertension; J45.909 Unspecified asthma, uncomplicated; Z87.442 Personal history of urinary calculi; Z88.6 Allergy status to analgesic agent; Z88.5 Allergy status to narcotic agent; Z90.49 Acquired absence of other specified parts of digestive tract
CPT/HCPCS: 99285; 96372; 36415; 83690; 84703; 85025; 80053; 81001; 74176; J1885; J1580